=== PATIENT | male | born 1965 | race Caucasian/White ===

== ENCOUNTER 2024-10-16 20:30 | Inpatient (IN) | payer OTHER, SELFPAY ==
[2024-10-16 14:15] VITALS: BP 151/78
[2024-10-16 14:53] LABS: % Basophils 0.2 % (0-2); % Eosinophils 0.2 % (0-6); % Immature Granulocytes 1.5 % (0-0.5); % Lymphocytes 2.1 % (20.5-51.1); % Monocytes 2.5 % (1.7-9.3); % Neutrophils 93.5 % (42.2-75.2); Absolute Immature Granulocytes 0.2 10^3/uL (0-0.05); Absolute Lymphocytes 0.3 10^3/uL (1.2-3.4); Absolute Monocytes 0.3 10^3/uL (0.1-0.6); Hematocrit 25.4 % (39.0-52.0); Hemoglobin 8.4 g/dL (13.0-18.0); Mean Corp Hgb Conc. 33.1 g/dL (33.0-37.0); Mean Corpuscular Hgb 28.1 pg (27.0-31.0); Mean Corpuscular Volume 84.9 fL (80.0-94.0); Mean Platelet Volume 9.9 fL (7.4-10.4); Nucleated Red Blood Cells % 0 % (-); Platelet Count 416 10^3/uL (130-400); Red Blood Cell Count 2.99 10^6/uL (4.70-6.10); Red Cell Dist. Width 14.5 % (11.5-14.5); White Blood Cell Count 12.8 10^3/uL (4.8-10.8)
[2024-10-16 14:58] LABS: Urine Albumin 1+ (Neg - Trace); Urine Bilirubin Negative (Negative); Urine Character Clear (Clear); Urine Color Yellow; Urine Glucose 3+ (Negative); Urine Ketone Negative (Negative); Urine Leukocyte Trace (Negative); Urine Nitrite Negative (Negative); Urine Occult Blood Negative (Negative); Urine Specific Gravity 1.015 (<1.030); Urine Urobilinogen Negative (Neg - 1+)
[2024-10-16 15:14] LABS: ALT (SGPT) 15 U/L (0-50); AST (SGOT) 21 U/L (17-59); Albumin 3.4 g/dl (3.5-5.0); Alkaline Phosphatase 57 U/L (38-126); Blood Urea Nitrogen 21 mg/dl (9-20); Calcium 8.4 mg/dl (8.4-10.2); Carbon Dioxide 14 mmol/L (22-30); Chloride 108 mmol/L (98-107); Glucose 210 mg/dl (70-99); Potassium 3.9 mmol/L (3.5-5.1); Sodium 132 mmol/L (135-145); Total Bilirubin 0.2 mg/dl (0.2-1.3); Total Protein 6.7 g/dl (6.3-8.2); eGFR 53.96
[2024-10-16 15:21] LABS: Urine Mucus Few
[2024-10-16 15:22] LABS: Urine Amorphous Seen; Urine Squamous Cell 0-2 /LPF (Few)
[2024-10-16 15:24] LABS: Urine Red Blood Cell 0-2 /HPF (0-2); Urine White Cell 0-2 /HPF (0-5)
--- NOTE | 2024-10-16 18:11 | ED.GENMED ---
History of Present Illness
<Silvio Olivo DO, Resident - Last Filed: 10/16/24 20:33>
General
Chief Complaint: Fever
Source: patient and spouse
Time Seen by Provider: 10/16/24 17:45
History of Present Illness
History of Present Illness:
59-year-old male past medical history significant for Crohn's disease on Rinvoq, DVT, hypertension, diabetes with a PICC line for chronic nutrition infusion of electrolytes presents for a fever of 1 day. Patient reports he was having shaking
chills, rigors and fever Tmax of 101. Patient denies any urinary symptoms, no cough or congestion, no shortness of breath or difficulty breathing. Patient does report chronic diarrhea and rectal pain, secondary to Crohn's disease. Patient also
reports that his PICC line was recently changed to this morning. He gets it changed every week and noticed no signs of infection of the PICC line. Patient reports having a cold approximate 1 week ago but since has resolved.
Review of Systems
<Silvio Olivo DO, Resident - Last Filed: 10/16/24 20:33>
Review of Systems
Constitutional: Reports fever and chills
Respiratory: Reports no symptoms
Cardiac: Reports no symptoms
ABD/GI: Reports abdominal pain and diarrhea; Denies nausea or vomiting
: Reports no symptoms
Phy Exam
<Silvio Olivo DO, Resident - Last Filed: 10/16/24 20:33>
General Physical Exam
General Presentation: well appearing and no apparent distress
General Skin: warm and dry
Cardiovascular Exam
Cardiovascular Exam: regular rate/rhythm, no edema and no murmur
Pulmonary Exam
Pulmonary Exam: lungs clear, no respiratory distress and no crackles
Gastrointestinal Exam
Gastrointestinal Exam: soft, surgical scar and other (Abdomen has multiple surgical scars and hernias present. Patient reports abdominal tenderness diffusely, worse in the left and right lower quadrants.)
Course
<Silvio Olivo DO, Resident - Last Filed: 10/16/24 20:33>
Orders/Labs/Results
Orders:
Orders
10/16/24 14:24
Electrocardiogram (*1) Urgent
Reason for Study: Other
Other Reason for Exam: fever
EKG- Treatment ONCE
CXR2 [CR Chest - 2 Views ] Urgent
Comment:
Reason For Exam: fever
10/16/24 14:42
Complete Blood Count/With Diff Urgent
Comprehensive Metabolic Panel Urgent
Urinalysis Reflex To Culture Urgent
Date Specimen was Collected: 10/16/24
Time Specimen was Collected: 14:24
Urine Microscopic Reflex Cult Urgent
10/16/24 18:04
CT Abd/pelvis W Iv Cont Urgent
Comment:
Reason For Exam: abdominal pain
10/16/24 18:05
Add On- LAB Urgent
Tests Added?: lactate
10/16/24 18:21
Lactated Ringers [Lr] 1,000 ml IV BOLUS
10/16/24 18:55
COVID-19 Antigen Urgent
Source: Nasal Swab
Lactic Acid Urgent
Blood Culture Q30M
GUANACO Source: Blood/Venous
Specimen Description:
Influenza A+B Rapid Molecular Urgent
GUANACO Source: Nasal Swab
Specimen Description:
10/16/24 19:34
Piperacillin/Tazo 4.5 Gram [Zosyn] 4.5 gram in 100 ml IV NOW
10/16/24 20:09
Blood Culture Q30M
GUANACO Source: Blood/Venous
Specimen Description:
Blood Culture Urgent
GUANACO Source: Blood/Venous
Specimen Description:
Comment: PICC LINE
10/16/24 20:14
Admit/Transfer Patient As Directed
Co-Sign Provider:
Level of Care: Inpatient admission
Assign to:: Medical/Surgical
Physician / Group: mellisa
Diagnosis: proctitis
Reason for Hospitalization: proctitis
Expected length of stay greater than two midnights?: Yes
ELOS- Estimated Length of Stay in days: 3
I certify the patient meets the requirements for IP care: Yes
PRN Pain Medication Management As Directed
May give lesser potent ordered pain med per pt: Yes
preference::
Protocol:: Medication orders for pain may be administered in a
manner that supports deferring to patient preference
when the pt is:
- Requesting an ordered lesser potent pain medication.
Least to most potent pain medications are defined
as: acetaminophen < NSAID < tramadol < opioids
(morphine, oxycodone, hydromorphone).
- Requesting a lesser dose of the same medication IF
ORDERED.
- Requesting a less intrusive route of administration
if both routes are prescribed by the provider (PO <
IV).
10/16/24 20:15
Code Status As Directed
Resuscitation Status: Full Code
10/16/24 20:25
Norovirus by PCR Stat
GUANACO Source: Feces/Stool
Specimen Description:
Stool For WBC Stat
GUANACO Source: Feces/Stool
Specimen Description:
Yersinia Culture-Stool Stat
GUANACO Source: Feces/Stool
Specimen Description:
Abnormal Lab Results
10/16/24
14:42
WBC 12.8 H 10^3/uL
(4.8-10.8)
RBC 2.99 L 10^6/uL
(4.70-6.10)
Hgb 8.4 L g/dL
(13.0-18.0)
Hct 25.4 L %
(39.0-52.0)
Plt Count 416 H 10^3/uL
(130-400)
Abs Immat Gran (auto) 0.2 H 10^3/uL
(0-0.05)
Absolute Neuts (auto) 12.0 H 10^3/uL
(1.4-6.5)
Absolute Lymphs (auto) 0.3 L 10^3/uL
(1.2-3.4)
Immature Gran % 1.5 H %
(0-0.5)
Neutrophils % 93.5 H %
(42.2-75.2)
Lymphocytes % 2.1 L %
(20.5-51.1)
Sodium 132 L mmol/L
(135-145)
Chloride 108 H mmol/L
(98-107)
Carbon Dioxide 14 L* mmol/L
(22-30)
BUN 21 H mg/dl
(9-20)
Creatinine 1.5 H mg/dL
(0.7-1.3)
Glucose 210 H mg/dl
(70-99)
Albumin 3.4 L g/dl
(3.5-5.0)
Leukocyte Esterase Rfl Trace A
(Negative)
Urine Glucose 3+ A
(Negative)
Urine Albumin (Reflex) 1+ A
(Neg - Trace)
10/16/24 14:42
10/16/24 14:42
Vital Signs
Initial and Last Documented VS:
Initial Vital Signs
Temp Pulse Resp BP Pulse Ox
98.9 F 130 18 151/78 98
10/16/24 14:15 10/16/24 14:15 10/16/24 14:15 10/16/24 14:15 10/16/24 14:15
Last Documented Vital Signs
Temp Pulse Resp BP Pulse Ox
99.6 F 102 20 115/82 100
10/16/24 18:23 10/16/24 20:15 10/16/24 20:15 10/16/24 20:00 10/16/24 19:30
<Juan Brown MD - Last Filed: 10/16/24 19:36>
Orders/Labs/Results
Orders:
Orders
10/16/24 14:24
Electrocardiogram (*1) Urgent
Reason for Study: Other
Other Reason for Exam: fever
EKG- Treatment ONCE
CXR2 [CR Chest - 2 Views ] Urgent
Comment:
Reason For Exam: fever
10/16/24 14:42
Complete Blood Count/With Diff Urgent
Comprehensive Metabolic Panel Urgent
Urinalysis Reflex To Culture Urgent
Date Specimen was Collected: 10/16/24
Time Specimen was Collected: 14:24
Urine Microscopic Reflex Cult Urgent
10/16/24 18:04
CT Abd/pelvis W Iv Cont Urgent
Comment:
Reason For Exam: abdominal pain
10/16/24 18:05
Add On- LAB Urgent
Tests Added?: lactate
10/16/24 18:21
Lactated Ringers [Lr] 1,000 ml IV BOLUS
10/16/24 18:55
COVID-19 Antigen Urgent
Source: Nasal Swab
Lactic Acid Urgent
Blood Culture Q30M
GUANACO Source: Blood/Venous
Specimen Description:
Influenza A+B Rapid Molecular Urgent
GUANACO Source: Nasal Swab
Specimen Description:
10/16/24 19:34
Piperacillin/Tazo 4.5 Gram [Zosyn] 4.5 gram in 100 ml IV NOW
10/16/24 20:09
Blood Culture Q30M
GUANACO Source: Blood/Venous
Specimen Description:
Blood Culture Urgent
GUANACO Source: Blood/Venous
Specimen Description:
Comment: PICC LINE
10/16/24 20:14
Admit/Transfer Patient As Directed
Co-Sign Provider:
Level of Care: Inpatient admission
Assign to:: Medical/Surgical
Physician / Group: mellisa
Diagnosis: proctitis
Reason for Hospitalization: proctitis
Expected length of stay greater than two midnights?: Yes
ELOS- Estimated Length of Stay in days: 3
I certify the patient meets the requirements for IP care: Yes
PRN Pain Medication Management As Directed
May give lesser potent ordered pain med per pt: Yes
preference::
Protocol:: Medication orders for pain may be administered in a
manner that supports deferring to patient preference
when the pt is:
- Requesting an ordered lesser potent pain medication.
Least to most potent pain medications are defined
as: acetaminophen < NSAID < tramadol < opioids
(morphine, oxycodone, hydromorphone).
- Requesting a lesser dose of the same medication IF
ORDERED.
- Requesting a less intrusive route of administration
if both routes are prescribed by the provider (PO <
IV).
10/16/24 20:15
Code Status As Directed
Resuscitation Status: Full Code
10/16/24 20:25
Norovirus by PCR Stat
GUANACO Source: Feces/Stool
Specimen Description:
Stool For WBC Stat
GUANACO Source: Feces/Stool
Specimen Description:
Yersinia Culture-Stool Stat
GUANACO Source: Feces/Stool
Specimen Description:
Abnormal Lab Results
10/16/24
14:42
WBC 12.8 H 10^3/uL
(4.8-10.8)
RBC 2.99 L 10^6/uL
(4.70-6.10)
Hgb 8.4 L g/dL
(13.0-18.0)
Hct 25.4 L %
(39.0-52.0)
Plt Count 416 H 10^3/uL
(130-400)
Abs Immat Gran (auto) 0.2 H 10^3/uL
(0-0.05)
Absolute Neuts (auto) 12.0 H 10^3/uL
(1.4-6.5)
Absolute Lymphs (auto) 0.3 L 10^3/uL
(1.2-3.4)
Immature Gran % 1.5 H %
(0-0.5)
Neutrophils % 93.5 H %
(42.2-75.2)
Lymphocytes % 2.1 L %
(20.5-51.1)
Sodium 132 L mmol/L
(135-145)
Chloride 108 H mmol/L
(98-107)
Carbon Dioxide 14 L* mmol/L
(22-30)
BUN 21 H mg/dl
(9-20)
Creatinine 1.5 H mg/dL
(0.7-1.3)
Glucose 210 H mg/dl
(70-99)
Albumin 3.4 L g/dl
(3.5-5.0)
Leukocyte Esterase Rfl Trace A
(Negative)
Urine Glucose 3+ A
(Negative)
Urine Albumin (Reflex) 1+ A
(Neg - Trace)
10/16/24 14:42
10/16/24 14:42
Vital Signs
Initial and Last Documented VS:
Initial Vital Signs
Temp Pulse Resp BP Pulse Ox
98.9 F 130 18 151/78 98
10/16/24 14:15 10/16/24 14:15 10/16/24 14:15 10/16/24 14:15 10/16/24 14:15
Last Documented Vital Signs
Temp Pulse Resp BP Pulse Ox
99.6 F 102 20 115/82 100
10/16/24 18:23 10/16/24 20:15 10/16/24 20:15 10/16/24 20:00 10/16/24 19:30
<Silvio Olivo DO, Resident - Last Filed: 10/16/24 20:33>
MDM/Problems Addressed
Differential Diagnosis Includes:
Sepsis, bacteremia, fever of unknown origin, non-anion gap metabolic acidosis
MDM/Problems Addressed:
59-year-old male past history of Crohn's disease on Renvoke, chronically immunosuppressed, presents for a fever Tmax 101 and shaking chills, rigors of approximately 1 day in duration
Patient has a PICC line which he reports was changed this morning. They report it is changed every week. He gets nutritional infusions through this PICC line for his chronic Crohn's
EKG demonstrates sinus tachycardia
Labs demonstrate leukocytosis 12.8, hemoglobin approximately at baseline, creatinine elevated 1.5
CO2 14, patient reports chronic diarrhea. Anion gap calculated at 10.0, 11.5 when corrected for albumin indicating likely hyperchloremic normal anion gap acidosis. Very likely secondary to chronic diarrhea, differential includes RTA
In the ED patient is afebrile. Will look for a source of infection, patient meets SIRS criteria with tachycardia and leukocytosis. Patient is not reporting any urinary or pulmonary symptoms
Chest x-ray demonstrated no acute cardiopulmonary abnormality, will check urinalysis
Check CT abdomen pelvis with IV contrast
Blood cultures ordered x 2, lactic acid add on, COVID and flu PCR ordered
Will initiate IV fluid with lactated Ringer's
<Silvio Olivo DO, Resident - Last Filed: 10/16/24 20:33>
*Critical Care Note
Total Time (30-74mins, 75-104mins- exclusive of procedures): Not Applicable
ED Attending Note
<Silvio Olivo DO, Resident - Last Filed: 10/16/24 20:33>
-
Portions of this chart may have been created with voice recognition software.� Occasional wrong word or��sound alike� substitutions may have occurred due to the inherent limitations of voice recognition software.
<Juan Brown MD - Last Filed: 10/16/24 19:36>
ED Attending Note
Patient seen and examined by attending physician: Yes
I performed a history and physical exam of patient and discussed management with resident, I reviewed resident's note and agree with documented findings and plan of care.: Yes
ED Attending Note:
I have seen and evaluated the patient with a [id number] encounter. I have spoken to the [resident] and involved in the medical history, the physical exam, medical decision making.
Evaluation and management service: agree unless noted differently below.
Results interpretation: agree unless noted differently below.
Patient is a 59-year-old male with history of Crohn's, Picc line, hypertension and multiple admissions for sepsis presenting to the emergency department with a fever. Patient states that he was in his usual state of health until 11 AM when he
started to develop rigors. He then had a temperature of 101. He is currently on Flagyl for his short gut syndrome. He does state that he had URI symptoms last week but they have resolved. Patient is is at bedside who states that he does
have history of multiple hospitalizations for sepsis. The usual source is his PICC line but sometimes it is from his bowel as he does have some weeks given the amount of surgeries he has had. No nausea or vomiting. He is been having baseline
diarrhea and abdominal pain. He has been having some rectal pain as well. No urinary symptoms.
GENERAL: appears chronically unwell
HEENT: normocephalic, extraocular movements intact, dry oral mucosa
NECK: normal inspection
RESPIRATORY: no respiratory distress, clear to auscultation bilaterally
CARDIOVASCULAR: regular rate and rhythm
ABDOMEN/: soft, non-distended, non-tender to palpation, no rebound or guarding
EXTREMITIES: non-tender, no edema/swelling, PICC line in place with no associated redness or tenderness
NEUROLOGIC: awake and alert, moves all extremities
SKIN: warm
Patient is a 59-year-old male with history of Crohn's presenting to the emergency department with fevers and rigor. Vitals here are initially notable for temperature of 98.9. On exam patient does have very minimal tenderness palpation diffusely.
Differential consists of Crohn's flare versus diverticulitis versus urine infection versus bacteremia. Blood work obtained prior to my evaluation shows no cytosis. He also has a nonanion gap acidosis. Urine is negative. Will add on lactate and
obtain both peripheral and PICC line culture. Will add on CT scan. Will give IV fluids. Patient will need admission for monitoring and observation given his multiple admissions for sepsis.
CT scan with mild wall thickening of the rectum. Will initiate Zosyn. Discussed with hospitalist who accepted patient to their service
Discharge Plan
Departure
Patient Disposition: Admit
Date of Disposition: 10/16/24
Time of Disposition: 19:35
Presentation/result/management discussed w/ accepting MD/DO: Hospitalist
Discharge Problem:
Acute proctitis
Interventions
Interventions:
*Risk Screen - Suicide Last Done: 10/16/24 18:25
*General Assessment Last Done: 10/16/24 18:25
*Neglect/Abuse Screening Last Done: 10/16/24 18:25
ED- Fall Risk Assessment Last Done: 10/16/24 18:25
*ED COVID-19 Vaccine History Last Done: 10/16/24 18:25
ED- Neurological Assessment Last Done: 10/16/24 18:30
ED-Skin Assessment Last Done: 10/16/24 18:30
[2024-10-16 18:23] VITALS: BP 100/69
[2024-10-16 19:14] LABS: Lactic Acid 0.9 mmol/L (0.7-2.0)
[2024-10-16 19:23] LABS: COVID-19 Antigen Negative (Negative)
[2024-10-16 19:28] VITALS: BP 106/68
--- NOTE | 2024-10-16 19:41 | HPS.HSE ---
Family Physician
-
Family Physician:
Chief Complaint
-
fever chills rigors
History of Present Illness
59-year-old male past medical history significant for Crohn's disease on Rinvoq, DVT, hypertension, diabetes with a PICC line for chronic nutrition infusion of electrolytes presents for a fever since this morning. patient had a temp of 101. stated
chills and rigors. denied runny nose, congestion,cough. denied WOLFE,dizzy or syncope.he has chronic abdominal pain as well chronic diarrhea. denied dysuria or hematuria. patient taking Flagyl prophagically.
Ct with proctitis. received iv Zosyn in ER. admitting for further management.
Medical History
Past Medical History
Past Medical History: Reports Other
Additional Past Medical History:
Type 2 diabetes
Hypertension
DVT
Crohn's disease
Iron deficiency anemia
B12 deficiency
Past Surgical History: Reports Other
Additional Past Surgical History:
History of multiple abdominal resection
Social History
Tobacco: Former Smoker
Alcohol: None
Personal:
Living: With Family
Family History
Family History: Not pertinent
Allergies / Home Medications
Allergies reflects when Allergies were last updated in [employer].
Home Medications with original date entered in [employer]
Allergy/Medication List:
Allergies
Allergy/AdvReac Type Severity Reaction Status Date / Time
No Known Allergies Allergy Unverified 10/16/24 14:22
Review of Systems
-
Constitutional: Reports Fever and Chills
EENT: Reports No Symptoms
Respiratory: Reports No Symptoms
Cardiac: Reports No Symptoms
Abdomen/GI: Reports No Symptoms
: Reports No Symptoms
Musculoskeletal: Reports No Symptoms
Skin: Reports No Symptoms
Neurological: Reports No Symptoms
Endocrine: Reports No Symptoms
Hematologic/Lymphatic: Reports No Symptoms
Psych: Reports No Symptoms
Physical Exam
Vital Signs
Vital Signs
Temp Pulse Resp BP Pulse Ox
99.6 F 99 16 100/69 98
10/16/24 18:23 10/16/24 18:45 10/16/24 18:45 10/16/24 18:23 10/16/24 18:45
Physical Exam
General: Well Developed, Well Nourished and No Apparent Distress
HEENT: NormoCephalic, Moist mucous membranes and Atraumatic
Respiratory: Clear
Cardiac: S1/S2 and Regular Rhythm; No Murmur or Rub
GI: Soft, Non Tender, Non Distended and Normal Bowel Sounds; No Organomegaly
Rectal: Deferred by Provider
Musculoskeletal: No Clubbing, No Cyanosis and No Edema
Skin: No Rash
Neuro: AO x 3 and Nonfocal/grossly intact
Psych: Calm
Laboratory Results
-
10/16/24 14:42
10/16/24 14:42
Laboratory Results
Lactic Acid 0.9 mmol/L (0.7-2.0) 10/16/24 18:55
Total Bilirubin 0.2 mg/dl (0.2-1.3) 10/16/24 14:42
AST 21 U/L (17-59) 10/16/24 14:42
ALT 15 U/L (0-50) 10/16/24 14:42
Alkaline Phosphatase 57 U/L (38-126) 10/16/24 14:42
Data Reviewed
-
CT Scan: Report Reviewed by me
Lab Data: Labs Reviewed by me
Impression/Plan
-
# fever likely from Proctitis
-WBCs 2.8
-CT abdomen pelvis with impression of there is apparent mild wall thickening of the rectum which may represent an element of proctitis. There is no evidence of bowel obstruction.
-Blood cultures from peripheral and PICC line sent from ER
-IV Zosyn initiated in ER
-hold abx until cultures resulted
-will obtain stool for cultures, norovirus and C diff
-blood culture from picc line and peripheral sent from ER.
-flagyl from home continued
-Tylenol as needed for fever or pain
# Hyponatremia/RODERICK/non gap metabolic acidosis likely dehydration
-Continue fluids
-BMP in a.m.
# Normocytic anemia
Hemoglobin 8.4
-No active bleeding
-Continue to monitor
-Gets iron infusion and B12 infusion as outpatient
# History of chron's disease
-Will continue home medications
-On Dilaudid and fentanyl patch for pain
-Patient gets electrolytes infusions 4 times a week
# Type 2 diabetes
- sliding scale
-CHO diet
# History of DVT
-On Eliquis
# History of hypertension
-metoprolol continued with hold parameters
# Hyperlipidemia
-Tricor continued
#CODE STATUS
-Full code
[2024-10-16 20:00] VITALS: BP 115/82
[2024-10-16] MEDS: LR 1000 IV (20:10)
[2024-10-16] MEDS: ZOSYN 100 IV (20:13)
--- NOTE | 2024-10-16 20:36 | W.PN.UPDATE ---
Update Note
Progress Note Update
Patient seen in conjunction with CIARA. I agree with the findings on history and physical exam as well as the assessment and plan.
Briefly this is a 59-year-old with history of extensive Crohn's colitis status post bowel resection ileostomy and reversal who is left with short bowel syndrome and history of bacterial overgrowth who presents to the emergency department today with
shaking chills and fever at home.
Patient reports that he has a chronic PICC line that has been there for 1 year. He gets dressing changes and blood draws as well as electrolyte infusions via the PICC line. He had blood drawn today as well as dressing change. Thereafter he
developed shaking chills. He then had a fever of 101 at home. He said that about a week and a half ago he had upper respiratory infection and was given a Z-Anup which he completed the course and had resolution of symptoms. Otherwise today he
denies any runny nose headache sore throat cough shortness of breath or dyspnea on exertion. He reports his chronic abdominal and rectal pain without any new nausea or vomiting. He reports chronic loose bowel movements/diarrhea which is unchanged
from prior. He denies any rash. He denies any known sick contacts. Denies any urinary symptoms.
He came to the emergency department for evaluation for the fever. Temperature in the ED was 99.6. Blood pressure was 100/69 with a pulse of 99 and was at 98% on room air. White count was 12.8 but otherwise hemoglobin was 8.4 (chronic anemia
patient gets iron infusion) and a normal platelet count of 416. Electrolytes notable for sodium of 132, potassium 3.9 bicarb of 14 BUN and creatinine of 21 and 1.5 respectively with a glucose of 210. Chest x-ray was clear. COVID test was
negative. Influenza negative. CT of the abdomen pelvis shows status post partial colectomy, there is some thickening of the rectum consistent with proctitis. UA is clear
Assessment and plan
59-year-old who has a history of Crohn's on chronic antibiotic Flagyl for bacterial overgrowth and recent treatment with Zithromycin for upper respiratory infection presents to the emergency department with a 1 day history of transient shaking
chills and a fever to 101 at home. Afebrile here in the emergency department and has no chills. He has no obvious source of infection at this time. Based on patient's history of chronic PICC line there is concern for possible bacteremia. The CT
of the abdomen was unrevealing and other infectious workup was negative.
- admit to med/surg
- blood cultures and urine cultures
- s/p zosyn in ED for colitis, will hold further abx for now
- check procalcitonin
- stool culture and cdiff
Electrolytes - Chronic low bicarb, CKD with chronic hypomagnesemia and hypophosphatemia
- IV 1/2 NS + 75 meq bicarb for now
- give 1 g MgS given low mag on home labs, repeat in am
- check phos in am
Crohns - On Rinvoq, no recent flairs
- continue supportive care and pt rinvoq
- colesavelam bid
- flagyl for bacterial overgrowth
AFIB
- continue apixaban and metoprolol
DVT PPX - on apixaban
Code status - full code
[2024-10-16 21:49] VITALS: BMI 27.0
[2024-10-16] MEDS: MAGNESIUM SULFATE 100 IV (21:50)
[2024-10-16 23:38] VITALS: BP 142/83; BMI 27.0
[2024-10-17] MEDS: IMODIUM 4 MG PO ×4 (00:13→22:38)
[2024-10-17] MEDS: DILAUDID 5 MG PO ×2 (00:13→19:38)
[2024-10-17] MEDS: FLOMAX 0.4 MG PO ×2 (00:13→22:38)
[2024-10-17] MEDS: SODIUM BICARBONATE 1075 MEQ IV (00:14)
[2024-10-17] MEDS: ELAVIL 25 MG PO ×2 (00:41→22:38)
--- NOTE | 2024-10-17 06:02 | PTCARENOTE ---
Stool was collected and sent to lab in the ED; this RN spoke with Loni Morton in the lab and was told that the outstanding C-diff could be added on.
[2024-10-17 06:29] LABS: Blood Urea Nitrogen 15 mg/dl (9-20); Calcium 7.5 mg/dl (8.4-10.2); Carbon Dioxide 20 mmol/L (22-30); Chloride 107 mmol/L (98-107); Estimated Creatinine Clearance 58 ml/min; Glucose 128 mg/dl (70-99); Magnesium 1.8 mg/dl (1.6-2.3); Phosphorus 2.6 mg/dl (2.5-4.5); Potassium 3.3 mmol/L (3.5-5.1); Sodium 135 mmol/L (135-145); eGFR 53.96
[2024-10-17 06:30] LABS: Hematocrit 21.2 % (39.0-52.0); Hemoglobin 6.8 g/dL (13.0-18.0); Mean Corp Hgb Conc. 32.1 g/dL (33.0-37.0); Mean Corpuscular Hgb 27.5 pg (27.0-31.0); Mean Corpuscular Volume 85.8 fL (80.0-94.0); Mean Platelet Volume 9.6 fL (7.4-10.4); Platelet Count 286 10^3/uL (130-400); Red Blood Cell Count 2.47 10^6/uL (4.70-6.10); Red Cell Dist. Width 14.6 % (11.5-14.5); White Blood Cell Count 7.6 10^3/uL (4.8-10.8)
[2024-10-17 07:05] VITALS: BP 114/70
--- NOTE | 2024-10-17 08:07 | W.PN.HOSP.TC ---
Today's Communication/Plan
-
See PN
Assessment / Plan
Assessment / Plan
59yo M with PMHx of cholecystectomy, Crohns colitis s/p colectomy, DM, BPH, LE DVT on ELiquis and IVC filter, RUE PICC line with 4xweek IVF came after he developed 1 hour of chills at home with reported fever of 101. XR negative for pneumonia, no
dysuria reported, influenza and COVID-[address] abd showed colitis. Patient also developed dark-black stool on the day of admission, found anemia
A/P:
#Fever at home, concern for colitis vs Crohns flare
#PICC line
#Immunosupressed patient
#chonic diarrhea
Zosyn/Vanco
Bcx pending
Hold Rinvoq
GI consult
Check C.diff stool
#New back pain
with fevers - MRI would be appropriate, however patient thinks that its just due to poor sleep and declined offered study
#Anemia, acute on chronic blood loss
Most likely 2/2 colitis
Serial H&H, transfuse to keep Hgb >7
PPI
Hold Antiplatelets, anticoagulation, avoid NSAIDs
#Hx of DVT LE on ELiquis and IVCf
Hold Eliquis - IVC filter present, so decreasing chance for pulmonary embolism.
US LE to eval if persistent DVT
#BPH
#Mild urinary bladder wall thickening
watch for retention
#Hypokalemia
#CKD stage 3a
#HAGMA on admission
Improving on Bicarb drip
follow and replete electrolytes
Urine studies
#Liver cyst/hemangioma
5mm - no follow up advised
#6 mm nodular focus within the inferior right lower lobe
outpatient CT chest in 3-6 months
DVT ppx SCDs
Full code
I have spent at least 58min reviewing chart, test results, communication with consukltants and direct patient care
Anticipated Discharge: > 48 hours
Subjective/Interval History
-
Date of Service: October 17, 2024
Objective Data
-
Labs:
Laboratory Results
10/17/24 10/17/24 10/17/24
05:38 09:30 17:00
WBC 7.6
Hgb 6.8 L* Pending Pending
Hct 21.2 L Pending Pending
Plt Count 286 D
Sodium 135
Potassium 3.3 L
Chloride 107
Carbon Dioxide 20 L
BUN 15
Creatinine 1.5 H
Glucose 128 H
Calcium 7.5 L
Vital Signs:
Vital Signs
Temp Pulse Resp BP Pulse Ox
99.2 F 104 14 142/83 100
10/16/24 23:38 10/16/24 23:38 10/16/24 23:38 10/16/24 23:38 10/16/24 23:38
I&O
10/16/24 10/17/24 10/18/24
06:59 06:59 06:59
Intake Total 800 / 800
Balance 800 / 800
Review of Systems
-
History Source: Patient
All other systems: Reviewed and negative
Abdomen/GI: Reports Abdominal Pain (chronic)
Genitourinary: Denies Dysuria
Musculoskeletal: Reports Other (upper back pain)
Hematologic / Lymphatic: Reports No Symptoms
[2024-10-17 08:18] LABS: Glucose - Point of Care 121 mg/dl (70-99)
[2024-10-17 08:35] LABS: Hematocrit 24.5 % (39.0-52.0); Hemoglobin 7.9 g/dL (13.0-18.0)
[2024-10-17] MEDS: NOVOLOG FLEXPEN-LOW RESISTANCE SC ×2 (08:46→17:18)
[2024-10-17] MEDS: TRICOR 145 MG PO (08:52)
[2024-10-17] MEDS: BENTYL 10 MG PO (08:52)
[2024-10-17] MEDS: TOPROL XL 50 MG PO (08:54)
[2024-10-17] MEDS: VANCOCIN 540 MG IV (08:56)
[2024-10-17] MEDS: LOMOTIL 1 TABLET PO (08:56)
[2024-10-17] MEDS: NSS (PRESERVATIVE FREE) 10 ML IV ×2 (08:57→19:39)
[2024-10-17] MEDS: PROTONIX IV 40 MG IV ×2 (08:58→19:39)
[2024-10-17] MEDS: ZOSYN 50 IV ×3 (09:38→19:39)
[2024-10-17] MEDS: KCL 270 MEQ IV (09:39)
[2024-10-17 10:23] LABS: Glycohemoglobin (HgbA1c) 5.4 % (4.0-5.6)
--- NOTE | 2024-10-17 10:35 | PHA.VAN.IN ---
Assessment
- Assessment
Renal Function: Unknown baseline
Renal Function may be Overestimated due to: Obesity. BMI = 27
Maximum Temperature: 99.2
Minimum Temperature: 98
Concomitant Antimicrobials: Piperacillin-tazobactam
AUC Dosing Plan
- Dosing Variables
Dosing Weight (kg): 87.7
Dosing CrCl (ml/min): 58
Vd coefficient (L/kg): 0.7
- Empiric Dosing
Initial / Loading Dose: Vanc 2000mg given 10/17 at 0856
Maintenance Regimen: Vanc 1500mg q24 starting 10/18 0600
Estimated AUC (mcg*h/mL): 483.39
Estimated Peak (mcg*h/mL): 34.1
Estimated Trough (mcg/ml): 10.45
Estimated Half Life (H): 13.2
- Monitoring
No levels ordered at this time: Consider levels after 10/20 dose
Pharmacokinetics Vancomycin I
- -
Patient Age: 59
Patient Sex: Male
Vancomycin Day #: 1
Indication: Gi / Intra-Abdominal
Requesting Provider: Daniele
Height / Weight:
Height 5 ft 11 in
Actual Weight 87.657 kg
IBW in k.3
Adjusted BW in k.2
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
- Vital Signs / Lab Results
Temp Pulse Resp BP Pulse Ox
98.0 F 83 16 114/70 97
10/17/24 07:05 10/17/24 07:05 10/17/24 07:05 10/17/24 07:05 10/17/24 07:05
Lab Results - Hematology
10/16/24 10/17/24
14:42 05:38
WBC 12.8 H 7.6
Lab Results - Chemistry
10/16/24 10/17/24
14:42 05:38
BUN 21 H 15
Creatinine 1.5 H 1.5 H
Estimated Creat Clear 58
Albumin 3.4 L
10/16/24
18:55
Lactic Acid 0.9
Lab Results - Urine
10/16/24
14:42
Urine Nitrite (Reflex) Negative
Leukocyte Esterase Rfl Trace A
Urine WBC (Reflex) 0-2
Ur Squamous Epith Cells 0-2
Microbiology Results
10/16/24 21:23 - Final
Feces/Stool Negative for Norovirus GI and GII.
10/16/24 21:23 C. difficile GDH Antigen & Toxins - Final
Feces/Stool Negative for toxigenic C.difficile
10/16/24 18:55 Influenza Types A & B (HARSHAD) - Final
Nasal Swab Negative for Influenza A & B, NAAT
Negative results must be combined with clinical observations
and patient history.
Nucleic Acid Amplification test (NAAT)performed on the
[employer] platform.
[2024-10-17 11:56] LABS: Glucose - Point of Care 172 mg/dl (70-99)
[2024-10-17] MEDS: NOVOLOG FLEXPEN-LOW RESISTANCE 1 UNITS SC (13:35)
--- NOTE | 2024-10-17 14:09 | CON.GI ---
Consultation
-
Date/Time Consultation Requested: 10/16/24
Date/Time Consultation Performed: 10/16/24
Requesting Provider: Dr. Sanabria
Performing Provider: Dr. Bonner
Reason for Consultation: Fever, hx of crohns colitis
Medical History
Chief Complaint / HPI
Chief Complaint: Fever
History of Present Illness:
William Leavitt is a 59-year-old male with past medical history of Crohn's colitis status post multiple fistulas, large and small bowel resections currently on Rinvoq and managed at [facility], history of DVT s/p IVC filter, hypertension, diabetes, PICC
line for chronic nutrition infusion of electrolytes and chronic narcotics who presents with 1 day of fevers. He reports yesterday having a fever of 101 with associated chills and rigors, denies any nausea, vomiting, worsening abdominal pain as he
has chronic abdominal pain at baseline, or change in bowels. At baseline he has chronic diarrhea, has about 4 episodes of diarrhea per day. He does state he believes he was given a diagnosis of short gut syndrome in the past as well as treated for
SIBO. He empirically started Flagyl at home. On arrival he had a CT scan which showed postoperative changes of partial colectomy and prior small bowel resections as well as apparent mild wall thickening of the rectum which could represent an
element of proctitis. No evidence of bowel obstruction. He follows very closely with his veterans services specialist. Last colonoscopy about a year ago. He is scheduled to have another 1 in November. Last Crohn's flare was about 5 years ago. He was
initially diagnosed about 20 years ago, states he has both large and small bowel involvement as well as rectum involvement. In addition to chronic abdominal pain, admits to chronic rectal pain as well. He believes prior imaging has shown proctitis
so thinks that this could be a chronic finding for him. He has previously been on Remicade, Humira and Stelara, started on Rinvoq in February. His last dose of Rinvoq was on Tuesday. He denies any rectal bleeding or melena. He was noted not be anemic
on arrival, Hgb 8.4 --> 6.8 --> 7.9, MCV 85.8, Plt 286. BUN 21 --> 15. Lactate 0.9, Cr. 1.5. Unknown baseline hemoglobin or Cr.
No prior records available for review.
CT A/P w/ IV Contrast 10/16/24: There is a 6 mm nodular focus within the inferior right lower lobe. 5 mm hypodensity within the inferior right hepatic lobe, likely a benign cyst or hemangioma. GB surgically absent. There is mild prominence of the
intrahepatic and extra hepatic biliary system, likely reservoir effect in the setting of prior cholecystectomy. No evidence of bowel obstruction or wall thickening. Postoperative changes of prior partial colectomy and partial small bowel resection.
There is mild rectal wall thickening.
Past Medical History
Past Medical History: Other (DVT s/p IVC filter, hypertension, diabetes, Crohns colitis)
Past Surgical History: Bowel Resection and Cholecystectomy
Social History
Tobacco: Former Smoker
Alcohol: None
Drug: None
Living: With Family
Family History
Family History: Reviewed & Not Pertinent
Allergies / Home Medications
Allergy/AdvReac Type Severity Reaction Status Date / Time
No Known Allergies Allergy Unverified 10/16/24 14:22
�Medication �Instructions �Recorded
amitriptyline 25 mg tablet 25 mg PO HS 10/16/24
apixaban 5 mg tablet (Eliquis) 5 mg PO BID 10/16/24
colesevelam 625 mg tablet (WelChol) 625 mg PO BID 10/16/24
dicyclomine 10 mg capsule 10 mg PO DAILY 10/16/24
diphenoxylate-atropine 2.5 1 tab PO DAILY 10/16/24
mg-0.025 mg tablet
fenofibrate micronized 160 mg 160 mg PO DAILY 10/16/24
tablet
fentanyl 12 mcg/hr transdermal 1 patch transdermal Q72H 10/16/24
patch
hydromorphone 1 mg/mL oral liquid 5 mg PO Q4H PRN moderate pain 10/16/24
insulin aspart U-100 10/16/24
loperamide 2 mg tablet 4 mg PO TID 10/16/24
metoprolol succinate 50 mg 50 mg PO DAILY 10/16/24
tablet,extended release 24 hr
metronidazole 500 mg tablet 500 mg PO DAILY 10/16/24
tamsulosin 0.4 mg capsule 0.4 mg PO HS 10/16/24
upadacitinib 30 mg tablet,extended 30 mg PO DAILY 10/16/24
release 24 hr (Rinvoq)
Review of Systems
-
History Source: Patient
All other systems: A 12 pt ROS was Negative except as stated above in HPI
Vital Signs
Temp Pulse Resp BP Pulse Ox
98.0 F 83 16 114/70 97
10/17/24 07:05 10/17/24 07:05 10/17/24 07:05 10/17/24 07:05 10/17/24 07:05
Physical Exam
Exam
GI: Soft, Non Tender, Non Distended and Other (Multiple well-healed surgical scars in the abdomen with 2 small hernias at surgical sites, which are reducible)
Results
WBC 7.6 10^3/uL (4.8-10.8) 10/17/24 05:38
Hgb 7.9 g/dL (13.0-18.0) L 10/17/24 08:23
Hct 24.5 % (39.0-52.0) L 10/17/24 08:23
MCV 85.8 fL (80.0-94.0) 10/17/24 05:38
Plt Count 286 10^3/uL (130-400) D 10/17/24 05:38
Absolute Neuts (auto) 12.0 10^3/uL (1.4-6.5) H 10/16/24 14:42
Sodium 135 mmol/L (135-145) 10/17/24 05:38
Potassium 3.3 mmol/L (3.5-5.1) L 10/17/24 05:38
Chloride 107 mmol/L (98-107) 10/17/24 05:38
Carbon Dioxide 20 mmol/L (22-30) L 10/17/24 05:38
BUN 15 mg/dl (9-20) 10/17/24 05:38
Creatinine 1.5 mg/dL (0.7-1.3) H 10/17/24 05:38
Calcium 7.5 mg/dl (8.4-10.2) L 10/17/24 05:38
Total Bilirubin 0.2 mg/dl (0.2-1.3) 10/16/24 14:42
AST 21 U/L (17-59) 10/16/24 14:42
ALT 15 U/L (0-50) 10/16/24 14:42
Alkaline Phosphatase 57 U/L (38-126) 10/16/24 14:42
Diagnostic Image Results:
Prior GI Procedures:
EGD:
Colonoscopy:
Assessment / Plan
-
59 y.o. male with history of Crohns colitis c/b enterocutaneous fistulas s/p SBR as well as partial colectomy currently on Rinvoq, DVT w/ IVC filter on eliquis, PICC line for electrolytes and nutrition, HTN, DM2 admitted with 1 day of fever noted to
have mild proctitis CT scan, also with evidence of anemia on labs, unknown baseline.
#Crohns Colitis s/p partial colectomy and multiple SBRs w/ resultant short-gut?-- follows closely at [facility], on Rinvoq. Reports last flare 5 years ago. Colonoscopy within the last year. Plans for repeat colonoscopy in Nov.
-Tmax since arrival 99.6--BCx pending, if negative, okay to resume Rinvoq
-possible bacteremia from PICC line?--> blood cultures taken from PICC line as well as peripherally, pending
-Started on Zosyn
-not consistent with crohns flare, per patient, believes his prior CT scans have demonstrated this inflammation in the rectum, so this could be a chronic finding for him
-Diarrhea at baseline for patient, check stool studies to rule out infectious etiologies, fecal calpro
-check CRP
-denies prior CMV infection--overall clinical picture not very concerning for Crohns flare, monitor over next 24 hours, hold off on endoscopic procedures for now
#Acute on Chronic Anemia
-Hgb 8.4 --> 6.8 --> 7.9, MCV 85.8
-1 unit PRBC ordered, but no transfused; recommend holding on transfusion given improvement without intervention
-[facility] with regards to prior endoscopic findings and baseline Hgb
-No overt signs of GI bleeding
-continue PPI IV BID for now
-gets iron and B12 infusions as outpatient
-
-
-
Thank you for consultation and allowing me to participate in the patient's care. Please call the talent acquisition consultant GI physician during the after hours with any questions or concerns.
[2024-10-17] MEDS: CATHFLO/ACTIVASE 2 MG INTRACATH (14:45)
--- NOTE | 2024-10-17 15:49 | CM ---
Chart reviewed. Patient here for proctitis. Has a history of Crohn's disease. Lives with his , Symone in a home. [address]. He is independent. He owns a walker, but he does not use it. He is on disability. He denies any +SDOHs. He drives. His
will provide transportation once he is discharged.
Home Health Agency: [facility]
PCP: Dr. Nayan Workman in [place]. [place] ([facility])
Pharmacy:[facility]
ANTICIPATED DISCHARGE PLAN: Discharge home with and [facility] services, when medically cleared.
[2024-10-17 16:20] VITALS: BP 119/67
[2024-10-17] MEDS: SODIUM BICARBONATE IV (16:22)
[2024-10-17] MEDS: LR 1000 IV (16:26)
--- NOTE | 2024-10-17 17:14 | VATNOTE ---
CathFlo instilled by previous shift RN. Both lumens flush easily, no blood return from either lumen. Will repeat CathFlo as per protocol.
[2024-10-17 17:16] LABS: Glucose - Point of Care 139 mg/dl (70-99)
--- NOTE | 2024-10-17 18:47 | VATNOTE ---
Repeat CathFlo dose given, both lumens now with brisk blood return.
[2024-10-17 19:03] LABS: Hematocrit 23.3 % (39.0-52.0); Hemoglobin 7.5 g/dL (13.0-18.0)
[2024-10-17 21:37] LABS: Glucose - Point of Care 208 mg/dl (70-99)
[2024-10-17 23:14] VITALS: BP 105/63
[2024-10-18] VITALS (8 sets, daily range): BP systolic 99–128; BP diastolic 58–75
[2024-10-18 00:13] LABS: Urine Sodium 43 mmol/L (30-90)
[2024-10-18 00:15] LABS: Osmolality Urine 359 mOsm/kg (300-900)
[2024-10-18] MEDS: LR 1000 IV ×2 (02:53→16:52)
[2024-10-18] MEDS: ZOSYN 50 IV ×4 (02:53→20:26)
[2024-10-18] MEDS: VANCOCIN 530 MG IV (06:47)
--- NOTE | 2024-10-18 06:53 | PTCARENOTE ---
Meio infusing at a slower rate per patient request; patient states that he gets flushed if infused too quickly.
[2024-10-18 06:58] LABS: % Basophils 0.4 % (0-2); % Eosinophils 3.3 % (0-6); % Lymphocytes 6.6 % (20.5-51.1); % Neutrophils 77.7 % (42.2-75.2); Absolute Eosinophils 0.2 10^3/uL (0-0.7); Absolute Immature Granulocytes 0.1 10^3/uL (0-0.05); Absolute Lymphocytes 0.3 10^3/uL (1.2-3.4); Absolute Monocytes 0.6 10^3/uL (0.1-0.6); Hemoglobin 6.4 g/dL (13.0-18.0); Mean Corpuscular Hgb 27.8 pg (27.0-31.0); Mean Platelet Volume 10.1 fL (7.4-10.4); Nucleated Red Blood Cells % 0 % (-); Platelet Count 233 10^3/uL (130-400); Red Cell Dist. Width 14.9 % (11.5-14.5); White Blood Cell Count 5.2 10^3/uL (4.8-10.8)
[2024-10-18 07:10] LABS: ALT (SGPT) 12 U/L (0-50); AST (SGOT) 17 U/L (17-59); Albumin 2.5 g/dl (3.5-5.0); Alkaline Phosphatase 45 U/L (38-126); Blood Urea Nitrogen 9 mg/dl (9-20); Calcium 7.4 mg/dl (8.4-10.2); Carbon Dioxide 20 mmol/L (22-30); Chloride 108 mmol/L (98-107); Estimated Creatinine Clearance 62 ml/min; Glucose 155 mg/dl (70-99); Magnesium 1.8 mg/dl (1.6-2.3); Phosphorus 2.2 mg/dl (2.5-4.5); Potassium 3.3 mmol/L (3.5-5.1); Sodium 134 mmol/L (135-145); Total Bilirubin 0.1 mg/dl (0.2-1.3); Total Protein 5.4 g/dl (6.3-8.2); eGFR 58.62
[2024-10-18 07:18] LABS: Glucose - Point of Care 137 mg/dl (70-99)
[2024-10-18] MEDS: NOVOLOG FLEXPEN-LOW RESISTANCE SC ×2 (07:56→17:47)
[2024-10-18] MEDS: FLUSH (NSS) 2 FLUSH IV (08:02)
[2024-10-18] MEDS: NSS (PRESERVATIVE FREE) 10 ML IV ×2 (08:02→20:26)
[2024-10-18] MEDS: PROTONIX IV 40 MG IV ×2 (08:02→20:25)
[2024-10-18] MEDS: TOPROL XL 50 MG PO (08:03)
[2024-10-18] MEDS: BENTYL 10 MG PO (08:03)
[2024-10-18] MEDS: TRICOR 145 MG PO (08:03)
[2024-10-18] MEDS: LOMOTIL 1 TABLET PO (08:04)
[2024-10-18] MEDS: IMODIUM 4 MG PO ×2 (08:04→22:29)
--- NOTE | 2024-10-18 08:30 | W.PN.HOSP.TC ---
Today's Communication/Plan
-
remove PICC, send PICC to culture, repeat Bcx in AM
ID consult
Assessment / Plan
Assessment / Plan
59yo M with PMHx of cholecystectomy, Crohns colitis s/p colectomy, DM, BPH, LE DVT on ELiquis and IVC filter, RUE PICC line with 4xweek IVF came after he developed 1 hour of chills at home with reported fever of 101. XR negative for pneumonia, no
dysuria reported, influenza and COVID-[address] abd showed colitis. Patient also developed dark-black stool on the day of admission, found anemia. s/p 1 unit PRBC on 10/18/24. Bcx from PICC grew bacteria
A/P:
#Fever at home
#Infected PICC line
#Immunosuppressed patient
#chronic diarrhea
Zosyn/Vanco
Bcx NTD
PICC line Cx - GNB
ID consult - remove PICC await Bcx results
Hold Rinvoq
GI consult
C.DIff and stool WBC neg
#New back pain
with fevers - MRI would be appropriate, however patient thinks that its just due to poor sleep and declined offered study
#Anemia, acute on chronic blood loss
Most likely 2/2 colitis
Serial H&H, transfuse to keep Hgb >7
PPI
Hold Antiplatelets, anticoagulation, avoid NSAIDs
#Hx of DVT LE on Eliquis and IVCf
Hold Eliquis - IVC filter present, so decreasing chance for pulmonary embolism.
US LE to eval if persistent DVT
#BPH
#Mild urinary bladder wall thickening
watch for retention
#Hypokalemia
#CKD stage 3a
#HAGMA on admission
Improving on Bicarb drip
follow and replete electrolytes
Urine studies
#Liver cyst/hemangioma
5mm - no follow up advised
#6 mm nodular focus within the inferior right lower lobe
outpatient CT chest in 3-6 months
DVT ppx SCDs
Full code
I have spent at least 58min reviewing chart, test results, communication with consukltants and direct patient care
Anticipated Discharge: > 48 hours
Subjective/Interval History
-
Date of Service: October 18, 2024
Objective Data
-
Labs:
Laboratory Results
10/18/24
05:39
WBC 5.2
Hgb 6.4 L*
Hct 20.0 L*
Plt Count 233
Sodium 134 L
Potassium 3.3 L
Chloride 108 H
Carbon Dioxide 20 L
BUN 9
Creatinine 1.4 H
Glucose 155 H
Calcium 7.4 L
Total Bilirubin 0.1 L
AST 17
ALT 12
Alkaline Phosphatase 45
Vital Signs:
Vital Signs
Temp Pulse Resp BP Pulse Ox
98.3 F 80 18 124/72 99
10/18/24 07:19 10/18/24 08:03 10/18/24 07:19 10/18/24 08:03 10/18/24 07:19
I&O
10/17/24 10/18/24 10/19/24
06:59 06:59 06:59
Intake Total 800 / 800 4440 / 4440
Output Total 600 / 600
Balance 800 / 800 3840 / 3840
Review of Systems
-
History Source: Patient
All other systems: Reviewed and negative
Physical Exam
-
General: Well Developed, Well Nourished and No Apparent Distress
HEENT: Normocephalic
Respiratory: Clear to Auscultation
GI: Soft, Nontender and Nondistended
Neuro: Awake, Alert, Oriented and AO x 3
Psych: Calm
--- NOTE | 2024-10-18 09:33 | PHA.VAN.FU ---
Vancomycin Assessment / Plan
- Assessment
Renal Function: SCR Decreasing (1.5->1.4)
WBC's are: Trending Down
In the past 24 hrs, patient has been: Afebrile
Concomitant Antimicrobials: Piperacillin/tazo
- Dosing Plan
Continue: vancomycin 1500 mg q24h - 1st maint dose 10/18 0600 after 2g LD 10/17
- Monitoring Plan
No level(s) ordered at this time: consider levels after 10/20 am dose ( 4th total dose)
- Follow Up
Pharmacy will continue to follow.
Vancomycin Follow UP
- -
Patient Age: 59
Patient Sex: Male
Vancomycin Day #: 2
Indication: Gi / Intra-Abdominal
Requesting Provider: Daniele
Height / Weight:
Height 5 ft 11 in
Actual Weight 87.657 kg
IBW in k.3
Adjusted BW in k.2
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
- Vital Signs / Lab Results
Temp Pulse Resp BP Pulse Ox
98.3 F 80 18 124/72 99
10/18/24 07:19 10/18/24 08:03 10/18/24 07:19 10/18/24 08:03 10/18/24 07:19
Lab Results - Hematology
10/16/24 10/17/24 10/18/24
14:42 05:38 05:39
WBC 12.8 H 7.6 5.2
Lab Results - Chemistry
10/16/24 10/17/24 10/18/24
14:42 05:38 05:39
BUN 21 H 15 9
Creatinine 1.5 H 1.5 H 1.4 H
Estimated Creat Clear 58 62
Albumin 3.4 L 2.5 L
10/16/24
18:55
Lactic Acid 0.9
Microbiology Results
10/16/24 20:09 Blood Culture - Preliminary
Blood/Venous Positive culture in progress
Gram Stain - Preliminary
10/16/24 20:09 Blood Culture - Preliminary
Blood/Venous No Growth in 24 hours- Final report to follow
10/16/24 18:55 Blood Culture - Preliminary
Blood/Venous No Growth in 24 hours- Final report to follow
10/16/24 21:23 Stool Leukocytes - Final
Feces/Stool
10/16/24 21:23 - Final
Feces/Stool Negative for Norovirus GI and GII.
10/16/24 21:23 C. difficile GDH Antigen & Toxins - Final
Feces/Stool Negative for toxigenic C.difficile
10/16/24 18:55 Influenza Types A & B (HARSHAD) - Final
Nasal Swab Negative for Influenza A & B, NAAT
Negative results must be combined with clinical observations
and patient history.
Nucleic Acid Amplification test (NAAT)performed on the
[email or web address] platform.
[2024-10-18 11:39] LABS: Glucose - Point of Care 165 mg/dl (70-99)
--- NOTE | 2024-10-18 12:26 | VATNOTE ---
PICC line removed per MD order, tip sent for culture.
[2024-10-18] MEDS: NOVOLOG FLEXPEN-LOW RESISTANCE 1 UNITS SC (13:13)
--- NOTE | 2024-10-18 13:16 | PTCARENOTE ---
Pt ordered 1 unit of PRBC. Previous PICC line removed, tip sent for cx, VSS, two peripheral sites placed by IV team into left FA. Blood confirmed by two RN's, Blood infusing into left FA 20g. Pt and vitals assessed at 15 minute jose a, VSS, pt resting
comfortably in bed at this time. See TAR for documentation.
--- NOTE | 2024-10-18 13:42 | CM ---
Patient seen at bedside.
hx: Chron's disease
current with [facility] - referral [facility] in [facility]
per nsg patient to receive transfusion, PICC to be removed.
PLAN: home, [facility]
--- NOTE | 2024-10-18 14:19 | CON.ID ---
Addendum entered and electronically signed by Paty Zuñiga MD 10/18/24 15:47:
metronidazole is for SIBO
Addendum entered and electronically signed by Paty Zuñiga MD 10/18/24 14:58:
Back pain over the right rhomboids - far from midline. not consistent with discitis or osteomyelitis, no need for MRI in my opinion
Also percussed entire spine and no spinal tenderness with percussion
Original Note:
Consultation
-
Date/Time Consultation Requested: 10/18/24 8:30
Date/Time Consultation Performed: 10/18/24 14:19
Requesting Provider: Dr Sanabria
Performing Provider: Dr Zuñiga
Reason for Consultation: infected PICC
Chief Complaint / Past History
Chief Complaint
fever chills rigors
History of Present Illness
Mr Leavitt is a 59 year old male with history of Crohns disease on rinvoq (VICTOR HUGO-I), DM2 on TPN via PICC line who presented here 10/16 for a fever of 101, chills, rigors. No couh, congestion, rhinorrhea, headache, dysuria. Chronic abdominal pain
and diarrhea is unchanged from his baseline. Of note he is on chronic metronidazole as prophylaxis.
Since arrival here he has been afebrile, bp stable, wbc on arrival 12.8 today 5.2, hgb 8.4 today 6.4, pt initially 416 now 233, L shift initially 93% now 77% nearly resolved, unknown Cr baseline today 1.4, na 134, K 3.3, co2 initialy 14 today 20, t
bili 0.1, ast 17, alt 12, alk phos 45, crp 36, UA no pyuria, stool calprotectin in progress, covid ag negative, peripheral venous US: chronic nonocclusive DVT, CT a/p with IV and oral contrast: partial colectomy, prior partial small bowel
resections, mild thicking of recum - porctitis, prior cholecystectomy, IVC filter present, CXR: no infiltrates, PICC in place, one of two sets of blood cultures from the PICC wiht acinetobacter, qtc 426, currently on vancomycin and zosyn, ID is
consulted for assistance with management.
Past History
Additional Past Medical History:
Type 2 diabetes
Hypertension
DVT
Crohn's disease
Iron deficiency anemia
B12 deficiency
Additional Past Surgical History:
History of multiple abdominal resection
Allergy History:
No Known Allergies Allergy (Unverified 10/16/24 14:22)
Medications Reviewed: Yes
Social History
Tobacco: Former Smoker
Alcohol: None
Personal:
Family History
Family History: Not Pertinent
Review of Systems
Review of Systems
General: Fever and Chills
All systems: All other systems were reviewed and were negative
Vital Signs
Temp Pulse Resp BP Pulse Ox
97.7 F 79 18 107/60 100
10/18/24 13:19 10/18/24 13:19 10/18/24 13:19 10/18/24 13:19 10/18/24 13:19
Physical Exam
Physical Exam
Constitutional: No Acute Distress
Cardiovascular: Regular Rate and S1/S2; Negative Murmur or Rub
Pulmonary: Clear and Symmetric; Negative Wheezes, Rales or Rhonchi
Gastrointestinal: Soft, Non Tender, Non Distended and Normal Bowel Sounds
Skin: Warm and Dry; Negative Rash or Jaundice
Lines: Other (PICC site nontender, dressing clean, dry, intact, as PICC just removed did not remove dressing)
Lab / Diagnostic Study Results
10/18/24 05:39
10/18/24 05:39
Abs Immat Gran (auto) 0.1 10^3/uL (0-0.05) H 10/18/24 05:39
Absolute Neuts (auto) 4.0 10^3/uL (1.4-6.5) 10/18/24 05:39
Absolute Lymphs (auto) 0.3 10^3/uL (1.2-3.4) L 10/18/24 05:39
Absolute Monos (auto) 0.6 10^3/uL (0.1-0.6) 10/18/24 05:39
Absolute Basos (auto) 0.0 10^3/uL (0-0.2) 10/18/24 05:39
Immature Gran % 1.0 % (0-0.5) H 10/18/24 05:39
Neutrophils % 77.7 % (42.2-75.2) H 10/18/24 05:39
Lymphocytes % 6.6 % (20.5-51.1) L 10/18/24 05:39
Monocytes % 11.0 % (1.7-9.3) H 10/18/24 05:39
Eosinophils % 3.3 % (0-6) 10/18/24 05:39
Basophils % 0.4 % (0-2) 10/18/24 05:39
Lactic Acid 0.9 mmol/L (0.7-2.0) 10/16/24 18:55
C-Reactive Protein 35.90 mg/L (0.0-10.00) H 10/17/24 18:42
Ur Squamous Epith Cells 0-2 /LPF (Few) 10/16/24 14:42
Microbiology Results
Micro:
10/16/24 20:09 Blood Culture - Preliminary
Blood/Venous Acinetobacter Species
Gram Stain - Preliminary
10/18/24 12:27 Catheter Tip Culture - Pending
Picc
10/16/24 21:23 - Preliminary
Feces/Stool Culture in Progress
Stool Leukocytes - Final
10/17/24 23:43 Salmonella/Shigella Culture - Pending
Feces/Stool Campylobacter Culture - Pending
Shiga Toxin Test - Pending
10/16/24 20:09 Blood Culture - Preliminary
Blood/Venous No Growth in 24 hours- Final report to follow
10/16/24 18:55 Blood Culture - Preliminary
Blood/Venous No Growth in 24 hours- Final report to follow
10/16/24 21:23 - Final
Feces/Stool Negative for Norovirus GI and GII.
10/16/24 21:23 C. difficile GDH Antigen & Toxins - Final
Feces/Stool Negative for toxigenic C.difficile
10/16/24 18:55 Influenza Types A & B (HARSHAD) - Final
Nasal Swab Negative for Influenza A & B, NAAT
Negative results must be combined with clinical observations
and patient history.
Nucleic Acid Amplification test (NAAT)performed on the
[employer] platform.
Assessment / Plan
Probable PICC line Infection due to Acinetobacter
- chronic TPN use - about 10 years
Fever - resolved
Immunosuppression on rinvoq (VICTOR HUGO-I)
Crohns Disease
Chronic diarrhea
- PICC has been removed
- paired cultures done on arrival, from the line - Acinetobacter, peripheral culture no growth to date
- picc tip sent for culture - poor sensitivity for line infection, if negative does not rule out line infection
- continue zosyn, while awaiting sensitivities add ciprofloxacin 500 mg PO BID
- hold POTATO PANCAKE FRIER metronidazole while on zosyn, can restart on dc, follow up with prescribing MD
- recheck QTc in the AM
- repeat blood cultures x2 in the am
- would prefer to continue holding rinvoq if feasible, left message for GI via tiger text asking for their input
Care Review
Plan reviewed with: Physician (Dr Sanabria - cultures, pulling picc)
[2024-10-18] MEDS: KCL 270 MEQ IV (15:42)
--- NOTE | 2024-10-18 16:33 | W.PN.GI.CBS2 ---
Today's Communication / Plan
-
await cultures
transfusing blood
Assessment / Plan
-
59 y.o. male with history of Crohns colitis c/b enterocutaneous fistulas s/p SBR as well as partial colectomy currently on Rinvoq, DVT w/ IVC filter on eliquis, PICC line for electrolytes and nutrition, HTN, DM2 admitted with 1 day of fever noted to
have mild proctitis CT scan, also with evidence of anemia on labs, unknown baseline.
#Crohns Colitis s/p partial colectomy and multiple SBRs w/ resultant short-gut?-- follows closely at [facility], on Rinvoq. Reports last flare 5 years ago. Colonoscopy within the last year. Plans for repeat colonoscopy in Nov.
-Tmax since arrival 99.6--BCx pending, if negative, okay to resume Rinvoq
-possible bacteremia from PICC line?--> blood cultures taken from PICC line as well as peripherally, pending
-Started on Zosyn
-not consistent with crohns flare, per patient, believes his prior CT scans have demonstrated this inflammation in the rectum, so this could be a chronic finding for him
-Diarrhea at baseline for patient, check stool studies to rule out infectious etiologies, fecal calpro
-check CRP
-denies prior CMV infection--overall clinical picture not very concerning for Crohns flare, monitor over next 24 hours, hold off on endoscopic procedures for now
#Acute on Chronic Anemia
plan:
-hgb drop again, ct negative and no overt gi bleeding, if drops again after transfusion consider heme w/u and flex sig in light of 'proctitis' finding
- awaiting cultures, thus far stool studies negative, picc cultured today
- hold on rinvoq until cultures back, d/w pt that stopping rinvoq won't increase antibody risk
-gets iron and B12 infusions as outpatient
- need records from [facility]
Subjective
Subjective
Date of Service: October 18, 2024
Pt w/o overt bleeding, receiving blood
no vomiting or abdominal pain
Objective
Data Reviewed
Laboratory Data:
Laboratory Results
10/18/24 05:39
10/18/24 05:39
Laboratory Results
Phosphorus 2.2 mg/dl (2.5-4.5) L 10/18/24 05:39
Magnesium 1.8 mg/dl (1.6-2.3) 10/18/24 05:39
Total Bilirubin 0.1 mg/dl (0.2-1.3) L 10/18/24 05:39
AST 17 U/L (17-59) 10/18/24 05:39
ALT 12 U/L (0-50) 10/18/24 05:39
Alkaline Phosphatase 45 U/L (38-126) 10/18/24 05:39
Vital Signs and I&O:
Vital Signs
Temp Pulse Resp BP Pulse Ox
98.2 F 82 17 128/70 100
10/18/24 15:39 10/18/24 15:39 10/18/24 15:39 10/18/24 15:39 10/18/24 15:39
I&O
10/17/24 10/18/24 10/19/24
06:59 06:59 06:59
Intake Total 800 / 800 4440 / 4440 250 / 250
Output Total 600 / 600
Balance 800 / 800 3840 / 3840 250 / 250
Physical Exam
Physical Exam
GI: Soft, Non Distended and Other (bowel sounds present, abdominal scar, reducible hernia)
Neuro: Non Focal
[2024-10-18] MEDS: CIPRO PO ×2 (16:55→17:35)
[2024-10-18] MEDS: IMODIUM PO ×2 (16:55→17:35)
[2024-10-18] MEDS: DILAUDID 1 MG IV ×2 (17:27→22:29)
[2024-10-18 17:40] LABS: Glucose - Point of Care 172 mg/dl (70-99)
[2024-10-18] MEDS: OFIRMEV 100 IV (17:55)
--- NOTE | 2024-10-18 18:24 | PTCARENOTE ---
Pt called this RN to room for severe chills. Temperature taken, oral temperature of 98.2. instructed this RN that this is what brought him in and the last time it happened, the temp did not start until half an hour in. Temperature rechecked 15
mins later at 102.1. Pt expressing nausea, fuzziness in the head, dizziness and uneasy feeling in stomach. Pt also with c/o 9/10 abdominal pain. Pt expressing inability to take PO meds at this time. This RN reached out to MD, tylenol and dilaudid
both swapped to IV instead. IV tylenol and dilaudid both administered. Pts temperature rechecked 10 minutes after IV tylenol, temperature now 102.9. MD made aware, pt resting comfortably in bed at this time with at bedside.
--- NOTE | 2024-10-18 18:41 | PTCARENOTE ---
MD ordered IV tylenol for continued fever, order acknowledged, awaiting pharmacy for medication to be sent up. Oncoming RN made aware of medication.
[2024-10-18 20:54] LABS: Glucose - Point of Care 219 mg/dl (70-99)
[2024-10-18] MEDS: ELAVIL 25 MG PO (22:29)
[2024-10-18] MEDS: FLOMAX 0.4 MG PO (22:36)
[2024-10-19] MEDS: ZOSYN 50 IV ×4 (02:08→21:07)
[2024-10-19] MEDS: LR 1000 IV ×2 (03:20→17:45)
[2024-10-19] MEDS: CIPRO 500 MG PO ×2 (05:37→17:43)
[2024-10-19] MEDS: DILAUDID 1 MG IV ×4 (06:40→20:04)
[2024-10-19 07:10] VITALS: BP 105/68
[2024-10-19 07:11] LABS: Glucose - Point of Care 124 mg/dl (70-99)
[2024-10-19 07:16] LABS: % Basophils 0.2 % (0-2); % Eosinophils 2.2 % (0-6); % Immature Granulocytes 0.8 % (0-0.5); % Lymphocytes 5.3 % (20.5-51.1); % Monocytes 8.2 % (1.7-9.3); % Neutrophils 83.3 % (42.2-75.2); Absolute Eosinophils 0.2 10^3/uL (0-0.7); Absolute Immature Granulocytes 0.1 10^3/uL (0-0.05); Absolute Lymphocytes 0.5 10^3/uL (1.2-3.4); Absolute Monocytes 0.8 10^3/uL (0.1-0.6); Absolute Neutrophils 7.6 10^3/uL (1.4-6.5); Hematocrit 24.2 % (39.0-52.0); Hemoglobin 7.9 g/dL (13.0-18.0); Mean Corp Hgb Conc. 32.6 g/dL (33.0-37.0); Mean Corpuscular Hgb 27.7 pg (27.0-31.0); Mean Corpuscular Volume 84.9 fL (80.0-94.0); Mean Platelet Volume 10.2 fL (7.4-10.4); Nucleated Red Blood Cells % 0 % (-); Platelet Count 256 10^3/uL (130-400); Red Blood Cell Count 2.85 10^6/uL (4.70-6.10); White Blood Cell Count 9.1 10^3/uL (4.8-10.8)
[2024-10-19 07:35] LABS: ALT (SGPT) 14 U/L (0-50); AST (SGOT) 29 U/L (17-59); Albumin 2.9 g/dl (3.5-5.0); Alkaline Phosphatase 58 U/L (38-126); Blood Urea Nitrogen 11 mg/dl (9-20); Calcium 7.7 mg/dl (8.4-10.2); Carbon Dioxide 22 mmol/L (22-30); Chloride 109 mmol/L (98-107); Estimated Creatinine Clearance 51 ml/min; Glucose 116 mg/dl (70-99); Potassium 3.9 mmol/L (3.5-5.1); Sodium 136 mmol/L (135-145); Total Bilirubin 1.4 mg/dl (0.2-1.3); eGFR 46.44
--- NOTE | 2024-10-19 08:50 | W.PN.HOSP.TC ---
Today's Communication/Plan
-
pending final Bcx, if neg - PICC and ID for duration and recommendations on Abx
Assessment / Plan
Assessment / Plan
59yo M with PMHx of cholecystectomy, intestinal bacterial overgrowth, Crohns colitis s/p colectomy, DM, BPH, LE DVT on ELiquis and IVC filter, RUE PICC line with 4xweek IVF came after he developed 1 hour of chills at home with reported fever of 101.
XR negative for pneumonia, no dysuria reported, influenza and COVID-[address] abd showed colitis. Patient also developed dark-black stool on the day of admission, found anemia. s/p 1 unit PRBC on 10/18/24. Bcx from PICC grew Acinetobacter
A/P:
#Fever at home
#Infected PICC line
#Immunosuppressed patient
#chronic diarrhea
Zosyn/Cipro, follow QTc
Bcx NTD
PICC line Cx - GNB
ID consult - remove PICC await Bcx results
Hold Rinvoq
GI consult
C.DIff and stool WBC neg
#New back pain
with fevers - MRI would be appropriate, however patient thinks that its just due to poor sleep and declined offered study
#Anemia, acute on chronic blood loss
Most likely 2/2 colitis
Serial H&H, transfuse to keep Hgb >7
PPI
Hold Antiplatelets, anticoagulation, avoid NSAIDs
#Hx of DVT LE on Eliquis and IVCf
Hold Eliquis - IVC filter present, so decreasing chance for pulmonary embolism.
US LE to eval if persistent DVT
#BPH
#Mild urinary bladder wall thickening
watch for retention
#Hypokalemia
#CKD stage 3a
#HAGMA on admission
Improving on Bicarb drip
follow and replete electrolytes
Urine studies
#Liver cyst/hemangioma
5mm - no follow up advised
#6 mm nodular focus within the inferior right lower lobe
outpatient CT chest in 3-6 months
DVT ppx SCDs
Full code
I have spent at least 38min reviewing chart, test results, communication with consukltants and direct patient care
Anticipated Discharge: > 48 hours
Subjective/Interval History
-
Date of Service: October 19, 2024
Objective Data
-
Labs:
Laboratory Results
10/19/24
06:50
WBC 9.1
Hgb 7.9 L D
Hct 24.2 L
Plt Count 256
Sodium 136
Potassium 3.9
Chloride 109 H
Carbon Dioxide 22
BUN 11
Creatinine 1.7 H
Glucose 116 H
Calcium 7.7 L
Total Bilirubin 1.4 H D
AST 29
ALT 14
Alkaline Phosphatase 58
Vital Signs:
Vital Signs
Temp Pulse Resp BP Pulse Ox
97.8 F 88 17 105/68 100
10/19/24 07:10 10/19/24 07:10 10/19/24 07:10 10/19/24 07:10 10/19/24 07:10
I&O
10/18/24 10/19/24 10/20/24
06:59 06:59 06:59
Intake Total 4440 / 4440 4710 / 4710
Output Total 600 / 600 650 / 650
Balance 3840 / 3840 4060 / 4060
Review of Systems
-
History Source: Patient
All other systems: Reviewed and negative
Abdomen/GI: Reports Abdominal Pain and Diarrhea
Physical Exam
-
General: No Apparent Distress
HEENT: Normocephalic, Atraumatic and Moist Mucous Membranes
Respiratory: Clear to Auscultation
GI: Soft
Genito-urinary: No Costovertebral Tender
Musculoskeletal: No Clubbing, No Cyanosis and No Edema
Neuro: Awake, Alert, Oriented and AO x 3
Psych: Calm
[2024-10-19] MEDS: IMODIUM 4 MG PO ×3 (08:52→21:14)
[2024-10-19] MEDS: NOVOLOG FLEXPEN-LOW RESISTANCE SC ×3 (08:52→17:15)
[2024-10-19] MEDS: PROTONIX IV 40 MG IV ×2 (08:53→21:07)
[2024-10-19] MEDS: NSS (PRESERVATIVE FREE) 10 ML IV ×2 (08:53→21:06)
[2024-10-19] MEDS: LOMOTIL 1 TABLET PO (08:54)
[2024-10-19] MEDS: TRICOR 145 MG PO (08:54)
[2024-10-19] MEDS: TOPROL XL PO (08:54)
[2024-10-19] MEDS: BENTYL 10 MG PO (08:54)
[2024-10-19] MEDS: LR IV (08:55)
--- NOTE | 2024-10-19 10:55 | CM ---
CM following re: discharge planning.
Reviewed pt's chart met with pt. IMM reviewed, placed on chart, pt has a copy.
Pt stated he is active with [facility] for infusion therapy and he will resume [facility] at discharge.
Pt reports his spouse will transport at discharge.
D/C plan: home with resumptions of [facility] and family support. Spouse to transport at discharge.
CM will follow with discharge plan updates as hospitalization progresses
[2024-10-19 11:47] LABS: Direct Bilirubin 0.3 mg/dl (0.0-0.4)
[2024-10-19 12:58] LABS: Glucose - Point of Care 123 mg/dl (70-99)
--- NOTE | 2024-10-19 14:29 | W.PN.ID1 ---
Date of Service
Date of Service: October 19, 2024
Today's Communication
follow up sensitivities
follow up repeat cultures
Assessment / Plan
Probable PICC line Infection due to Acinetobacter
- chronic TPN/IVF use - about 10 years
Fever - resolved
Immunosuppression on rinvoq ([facility])
Crohns Disease
SIBO with chronic diarrhea
- PICC has been removed 10/18
- paired cultures done on arrival, from the line - Acinetobacter, peripheral culture no growth to date
- picc tip sent for culture - poor sensitivity for line infection, if negative does not rule out line infection
- plan 2 week course of treatment
- known to [facility]
- continue zosyn, while awaiting sensitivities add ciprofloxacin 500 mg PO BID
- hold [employer]AL[employer] metronidazole (for SIBO) while on zosyn
- QTc remains acceptable
- repeat blood cultures x2 in progress no growth to date
- would hold rinvoq while on treatment for line infection; appreciate GI input
Chief Complaint
-: Other (picc line infection)
Subjective / Review of Systems
afebrile
bp stable
no events overnight
Vital Signs / Physical Exam
Vital Signs
Vital Signs
Temp Pulse Resp BP Pulse Ox
97.8 F 88 17 105/68 100
10/19/24 07:10 10/19/24 08:54 10/19/24 07:10 10/19/24 08:54 10/19/24 11:34
Physical Exam
Constitutional: No Acute Distress and Chronically Ill
Cardiovascular: Regular Rate and S1/S2; Negative Murmur or Rub
Pulmonary: Clear and Symmetric; Negative Wheezes or Rales
Gastrointestinal: Soft, Non Tender, Non Distended and Normal Bowel Sounds
Skin: Warm and Dry; Negative Rash or Jaundice
Wound: Other (previous picc site no erythema warmth tenderness or cord)
Objective Data
Lab Data
Lab Results
10/19/24 06:50
10/19/24 06:50
Estimated Creat Clear 51 ml/min 10/19/24 06:50
Lactic Acid 0.9 mmol/L (0.7-2.0) 10/16/24 18:55
Total Bilirubin 1.4 mg/dl (0.2-1.3) H D 10/19/24 06:50
AST 29 U/L (17-59) 10/19/24 06:50
ALT 14 U/L (0-50) 10/19/24 06:50
Alkaline Phosphatase 58 U/L (38-126) 10/19/24 06:50
C-Reactive Protein 35.90 mg/L (0.0-10.00) H 10/17/24 18:42
Most recent labs reviewed.
Micro Results:
10/17/24 23:43 Salmonella/Shigella Culture - Preliminary
Feces/Stool Culture in Progress
Campylobacter Culture - Preliminary
Culture in Progress
Shiga Toxin Test - Pending
10/18/24 12:27 Catheter Tip Culture - Preliminary
Picc No Growth After 18-24 Hours
10/16/24 20:09 Blood Culture - Preliminary
Blood/Venous Acinetobacter Species
Gram Stain - Preliminary
10/16/24 21:23 - Final
Feces/Stool NO YERSINIA SPECIES ISOLATED
Stool Leukocytes - Final
10/19/24 11:10 Blood Culture - Pending
Blood/Venous
10/19/24 06:50 Blood Culture - Pending
Blood/Venous
10/16/24 20:09 Blood Culture - Preliminary
Blood/Venous No Growth in 48 hours- Final report to follow
10/16/24 18:55 Blood Culture - Preliminary
Blood/Venous No Growth in 48 hours- Final report to follow
10/16/24 21:23 - Final
Feces/Stool Negative for Norovirus GI and GII.
10/16/24 21:23 C. difficile GD Antigen & Toxins - Final
Feces/Stool Negative for toxigenic C.difficile
10/16/24 18:55 Influenza Types A & B (HARSHAD) - Final
Nasal Swab Negative for Influenza A & B, NAAT
Negative results must be combined with clinical observations
and patient history.
Nucleic Acid Amplification test (NAAT)performed on the
[email or web address] platform.
[2024-10-19 15:10] VITALS: BP 116/64
[2024-10-19 16:48] LABS: Glucose - Point of Care 158 mg/dl (70-99)
--- NOTE | 2024-10-19 17:40 | W.PN.GI.CBS2 ---
Addendum entered and electronically signed by Vincent Workman MD 10/19/24 17:55:
I saw and examined the patient.
The PA's note was reviewed and I agree with the note.
Comment:
Resume Rinvoq once second set of blood cx is -ve.
Original Note:
Today's Communication / Plan
-
as per plan
Assessment / Plan
-
59 y.o. male with history of Crohns colitis c/b enterocutaneous fistulas s/p SBR as well as partial colectomy currently on Rinvoq, DVT w/ IVC filter on eliquis, PICC line for electrolytes and nutrition, HTN, DM2 admitted with 1 day of fever noted to
have mild proctitis CT scan, also with evidence of anemia on labs, unknown baseline.
#Crohns Colitis s/p partial colectomy and multiple SBRs w/ resultant short-gut?-- follows closely at [facility], on Rinvoq. Reports last flare 5 years ago. Colonoscopy within the last year. Plans for repeat colonoscopy in Nov.
-Tmax since arrival 99.6--BCx pending, if negative, okay to resume Rinvoq
-possible bacteremia from PICC line?--> blood cultures taken from PICC line as well as peripherally, pending
-Started on Zosyn
-not consistent with crohns flare, per patient, believes his prior CT scans have demonstrated this inflammation in the rectum, so this could be a chronic finding for him
-Diarrhea at baseline for patient, check stool studies to rule out infectious etiologies, fecal calpro
-check CRP
-denies prior CMV infection--overall clinical picture not very concerning for Crohns flare, monitor over next 24 hours, hold off on endoscopic procedures for now
#Acute on Chronic Anemia
plan:
-Hgb stable, ct negative and no overt gi bleeding, if drops again after transfusion consider heme w/u and flex sig in light of 'proctitis' finding. Stools without any blood per patient.
- awaiting cultures, thus far stool studies negative, picc cultured.
- hold on rinvoq until cultures back, d/w pt that stopping rinvoq won't increase antibody risk
-gets iron and B12 infusions as outpatient
- need records from [facility]
Subjective
Subjective
Date of Service: October 19, 2024
Patient without any abdominal pain. Stool are his baseline loose. No signs of bleeding. Hgb stable. Tolerating diet. Awaiting repeat blood cultures to re-initiate Rinvoq.
Objective
Data Reviewed
Laboratory Data:
Laboratory Results
10/19/24 06:50
10/19/24 06:50
Laboratory Results
Phosphorus 2.2 mg/dl (2.5-4.5) L 10/18/24 05:39
Magnesium 1.8 mg/dl (1.6-2.3) 10/18/24 05:39
Total Bilirubin 1.4 mg/dl (0.2-1.3) H D 10/19/24 06:50
AST 29 U/L (17-59) 10/19/24 06:50
ALT 14 U/L (0-50) 10/19/24 06:50
Alkaline Phosphatase 58 U/L (38-126) 10/19/24 06:50
Vital Signs and I&O:
Vital Signs
Temp Pulse Resp BP Pulse Ox
98.3 F 79 17 116/64 100
10/19/24 15:10 10/19/24 15:10 10/19/24 15:10 10/19/24 15:10 10/19/24 15:10
I&O
10/18/24 10/19/24 10/20/24
06:59 06:59 06:59
Intake Total 4440 / 4440 4710 / 4710 2400 / 2400
Output Total 600 / 600 650 / 650
Balance 3840 / 3840 4060 / 4060 2400 / 2400
Physical Exam
Physical Exam
HEENT: Anicteric
Cardiology: Normal Sinus Rhythm
Pulmonary: Clear (anterior)
GI: Soft, Non Distended, Non Tender, Normal Bowel Sounds and Other (2 abdominal hernias, reducible)
Extremities: No Edema
Neuro: Non Focal
[2024-10-19] MEDS: FLUSH (NSS) 2 FLUSH IV ×2 (20:05→21:08)
[2024-10-19] MEDS: ELAVIL 25 MG PO (21:12)
[2024-10-19] MEDS: FLOMAX 0.4 MG PO (21:12)
[2024-10-19 21:14] LABS: Glucose - Point of Care 205 mg/dl (70-99)
[2024-10-19 22:36] LABS: Calprotectin, Fecal 553 ug/g (<=49)
[2024-10-19 23:05] VITALS: BP 124/74
[2024-10-20] VITALS (7 sets, daily range): BP systolic 122–131; BP diastolic 68–78
[2024-10-20] MEDS: ZOSYN 50 IV ×4 (01:45→20:29)
[2024-10-20] MEDS: DILAUDID 1 MG IV ×4 (01:45→18:37)
[2024-10-20] MEDS: FLUSH (NSS) 4 FLUSH IV (01:46)
[2024-10-20] MEDS: LR 1000 IV (04:58)
[2024-10-20] MEDS: CIPRO 500 MG PO ×2 (05:00→17:04)
[2024-10-20 07:21] LABS: Glucose - Point of Care 96 mg/dl (70-99)
[2024-10-20] MEDS: FLUSH (NSS) 2 FLUSH IV (07:25)
[2024-10-20 07:54] LABS: ALT (SGPT) 12 U/L (0-50); AST (SGOT) 18 U/L (17-59); Albumin 2.4 g/dl (3.5-5.0); Alkaline Phosphatase 41 U/L (38-126); Blood Urea Nitrogen 11 mg/dl (9-20); Calcium 7.9 mg/dl (8.4-10.2); Carbon Dioxide 24 mmol/L (22-30); Chloride 108 mmol/L (98-107); Estimated Creatinine Clearance 54 ml/min; Glucose 105 mg/dl (70-99); Potassium 3.6 mmol/L (3.5-5.1); Sodium 137 mmol/L (135-145); Total Bilirubin 0.5 mg/dl (0.2-1.3); Total Protein 5.2 g/dl (6.3-8.2); eGFR 49.94
[2024-10-20] MEDS: NOVOLOG FLEXPEN-LOW RESISTANCE SC (08:40)
[2024-10-20] MEDS: BENTYL 10 MG PO (08:41)
[2024-10-20] MEDS: IMODIUM 4 MG PO ×3 (08:41→21:03)
[2024-10-20] MEDS: TRICOR 145 MG PO (08:41)
[2024-10-20] MEDS: LOMOTIL 1 TABLET PO (08:41)
[2024-10-20] MEDS: TOPROL XL 50 MG PO (08:41)
[2024-10-20] MEDS: PROTONIX IV 40 MG IV ×2 (08:42→20:26)
[2024-10-20] MEDS: NSS (PRESERVATIVE FREE) 10 ML IV ×2 (08:42→20:26)
[2024-10-20 08:53] LABS: % Basophils 0.4 % (0-2); % Eosinophils 3.1 % (0-6); % Immature Granulocytes 0.7 % (0-0.5); % Monocytes 10.9 % (1.7-9.3); % Neutrophils 77.9 % (42.2-75.2); Absolute Eosinophils 0.2 10^3/uL (0-0.7); Absolute Lymphocytes 0.4 10^3/uL (1.2-3.4); Absolute Monocytes 0.6 10^3/uL (0.1-0.6); Absolute Neutrophils 4.2 10^3/uL (1.4-6.5); Hematocrit 20.7 % (39.0-52.0); Hemoglobin 6.6 g/dL (13.0-18.0); Mean Corp Hgb Conc. 31.9 g/dL (33.0-37.0); Mean Corpuscular Hgb 27.6 pg (27.0-31.0); Mean Corpuscular Volume 86.6 fL (80.0-94.0); Mean Platelet Volume 10.5 fL (7.4-10.4); Nucleated Red Blood Cells % 0 % (-); Platelet Count 188 10^3/uL (130-400); Red Blood Cell Count 2.39 10^6/uL (4.70-6.10); Red Cell Dist. Width 14.9 % (11.5-14.5); White Blood Cell Count 5.4 10^3/uL (4.8-10.8)
--- NOTE | 2024-10-20 11:39 | W.PN.HOSP.TC ---
Today's Communication/Plan
-
transfuse PRBC
Anemia w/u
ID for ABx and PICC plan recall GI
Assessment / Plan
Assessment / Plan
59yo M with PMHx of cholecystectomy, intestinal bacterial overgrowth, Crohns colitis s/p colectomy, DM, BPH, LE DVT on ELiquis and IVC filter, RUE PICC line with 4xweek IVF came after he developed 1 hour of chills at home with reported fever of 101.
XR negative for pneumonia, no dysuria reported, influenza and COVID-[address] abd showed colitis. Patient also developed dark-black stool on the day of admission, found anemia. s/p 1 unit PRBC on 10/18/24. Bcx from PICC grew Acinetobacter
pending final Cx, ID Abx plan and PICC line reinsertion
A/P:
#Fever at home
#Infected PICC line
#Immunosuppressed patient
#chronic diarrhea
Zosyn/Cipro, follow QTc
Bcx NTD
PICC line Cx - GNB
ID consult - remove PICC await Bcx results
Hold Rinvoq
GI consult
C.DIff and stool WBC neg
#New back pain
with fevers - MRI would be appropriate, however patient thinks that its just due to poor sleep and declined offered study
#Anemia, acute on chronic blood loss
Most likely 2/2 colitis
Serial H&H, transfuse to keep Hgb >7
PPI
Hold Antiplatelets, anticoagulation, avoid NSAIDs
#Hx of DVT LE on Eliquis and IVCf
Hold Eliquis - IVC filter present, so decreasing chance for pulmonary embolism.
US LE to eval if persistent DVT
#BPH
#Mild urinary bladder wall thickening
watch for retention
#Hypokalemia
#CKD stage 3a
#HAGMA on admission
Improving on Bicarb drip
follow and replete electrolytes
Urine studies
#Liver cyst/hemangioma
5mm - no follow up advised
#6 mm nodular focus within the inferior right lower lobe
outpatient CT chest in 3-6 months
DVT ppx SCDs
Full code
I have spent at least 58min reviewing chart, test results, communication with consukltants and direct patient care
Anticipated Discharge: > 48 hours
Subjective/Interval History
-
Date of Service: October 20, 2024
Objective Data
-
Labs:
Laboratory Results
10/20/24
06:47
WBC 5.4
Hgb 6.6 L*
Hct 20.7 L*
Plt Count 188 D
Sodium 137
Potassium 3.6
Chloride 108 H
Carbon Dioxide 24
BUN 11
Creatinine 1.6 H
Glucose 105 H
Calcium 7.9 L
Total Bilirubin 0.5
AST 18
ALT 12
Alkaline Phosphatase 41
Vital Signs:
Vital Signs
Temp Pulse Resp BP Pulse Ox
97.8 F 85 18 131/74 100
10/20/24 07:00 10/20/24 08:41 10/20/24 07:00 10/20/24 08:41 10/20/24 07:00
I&O
10/19/24 10/20/24 10/21/24
06:59 06:59 06:59
Intake Total 4710 / 4710 2700 / 2700 1500 / 1500
Output Total 650 / 650
Balance 4060 / 4060 2700 / 2700 1500 / 1500
Review of Systems
-
History Source: Patient
All other systems: Reviewed and negative
Physical Exam
-
General: No Apparent Distress
Neuro: Awake, Alert, Oriented and AO x 3
Psych: Calm
[2024-10-20 11:40] LABS: Glucose - Point of Care 187 mg/dl (70-99)
[2024-10-20 12:12] LABS: Iron 26 ug/dl (49-181); LDH 202 U/L (120-246)
[2024-10-20 12:22] LABS: Percent Saturation 9 % (20-50); Total Iron Binding Capacity 261 ug/dl (261-462)
[2024-10-20 12:25] LABS: Reticulocyte Count 4.2 % (0.4-2.8)
[2024-10-20 12:48] LABS: Ferritin 79.3 ng/ml (17.9-464.0)
[2024-10-20 13:19] LABS: Vitamin B12 519 pg/ml (239-931)
[2024-10-20] MEDS: NOVOLOG FLEXPEN-LOW RESISTANCE 1 UNITS SC (13:25)
[2024-10-20 13:37] LABS: Folate 15.3 ng/ml (2.76-20)
--- NOTE | 2024-10-20 14:29 | W.PN.GI.CBS2 ---
Today's Communication / Plan
-
Continue monitor H&H. Transfuse as needed
Follow-up with his GI at [facility] on discharge
Assessment / Plan
-
59 y.o. male with history of Crohns colitis c/b enterocutaneous fistulas s/p SBR as well as partial colectomy currently on Rinvoq, DVT w/ IVC filter on eliquis, PICC line for electrolytes and nutrition, HTN, DM2 admitted with 1 day of fever noted to
have mild proctitis CT scan, also with evidence of anemia on labs, unknown baseline.
#Crohns Colitis s/p partial colectomy and multiple SBRs w/ resultant short-gut?-- follows closely at [facility], on Rinvoq. Reports last flare 5 years ago. Colonoscopy within the last year. Plans for repeat colonoscopy in Nov.
-Tmax since arrival 99.6--BCx pending, if negative, okay to resume Rinvoq
-possible bacteremia from PICC line?--> blood cultures taken from PICC line as well as peripherally, pending
-Started on Zosyn
-not consistent with crohns flare, per patient, believes his prior CT scans have demonstrated this inflammation in the rectum, so this could be a chronic finding for him
-Diarrhea at baseline for patient, check stool studies to rule out infectious etiologies, fecal calpro
-check CRP
-denies prior CMV infection--overall clinical picture not very concerning for Crohn's flare, monitor over next 24 hours, hold off on endoscopic procedures for now
#Acute on Chronic Anemia
plan:
Patient denies any overt GI bleeding. Discussed about benefits and risk of endoscopic evaluation for acute on chronic anemia. Patient verbalized understanding and would like to hold off on endoscopy procedures here. He would like to have it done
with his GI at [facility] as outpatient. He claims he has been anemic and usually runs around 8-9. Also sees hematology at [facility] and get iron infusion. Will recommend follow-up with his GI at [facility] on discharge.
Okay to resume Rinvoq when repeat cultures are negative and okay with ID.
No further recommendation at this point. Will sign off. Please call us back if any questions
Total Time Spent with Patient (in minutes): 35
Subjective
Subjective
Date of Service: October 20, 2024
Denies any GI bleeding. Brown liquid stools.
Objective
Data Reviewed
Laboratory Data:
Laboratory Results
10/20/24 06:47
10/20/24 06:47
Laboratory Results
Phosphorus 2.2 mg/dl (2.5-4.5) L 10/18/24 05:39
Magnesium 1.8 mg/dl (1.6-2.3) 10/18/24 05:39
Total Bilirubin 0.5 mg/dl (0.2-1.3) 10/20/24 06:47
AST 18 U/L (17-59) 10/20/24 06:47
ALT 12 U/L (0-50) 10/20/24 06:47
Alkaline Phosphatase 41 U/L (38-126) 10/20/24 06:47
Vital Signs and I&O:
Vital Signs
Temp Pulse Resp BP Pulse Ox
98.4 F 83 18 128/75 100
10/20/24 13:38 10/20/24 13:38 10/20/24 13:38 10/20/24 13:38 10/20/24 07:00
I&O
10/19/24 10/20/24 10/21/24
06:59 06:59 06:59
Intake Total 4710 / 4710 2700 / 2700 1500 / 1500
Output Total 650 / 650
Balance 4060 / 4060 2700 / 2700 1500 / 1500
Physical Exam
Physical Exam
GI: Soft, Non Distended and Non Tender
[2024-10-20] MEDS: FERRLECIT 110 MG IV (15:54)
[2024-10-20 16:33] LABS: Glucose - Point of Care 212 mg/dl (70-99)
[2024-10-20] MEDS: NOVOLOG FLEXPEN-LOW RESISTANCE 2 UNITS SC (17:04)
[2024-10-20] MEDS: FLUSH (NSS) 3 FLUSH IV (20:29)
[2024-10-20] MEDS: FLOMAX 0.4 MG PO (21:01)
[2024-10-20] MEDS: ELAVIL 25 MG PO (21:01)
[2024-10-20 21:21] LABS: Glucose - Point of Care 164 mg/dl (70-99)
[2024-10-21] MEDS: DILAUDID 1 MG IV ×4 (00:05→14:27)
[2024-10-21] MEDS: FLUSH (NSS) 2 FLUSH IV ×3 (00:07→06:03)
[2024-10-21] MEDS: ZOSYN 50 IV ×2 (01:43→08:07)
[2024-10-21] MEDS: CIPRO 500 MG PO (06:00)
[2024-10-21 07:05] VITALS: BP 112/67
[2024-10-21 07:06] LABS: Glucose - Point of Care 129 mg/dl (70-99)
[2024-10-21] MEDS: NOVOLOG FLEXPEN-LOW RESISTANCE SC ×2 (07:13→16:51)
[2024-10-21 08:04] LABS: % Basophils 0.4 % (0-2); % Eosinophils 3.2 % (0-6); % Immature Granulocytes 1.1 % (0-0.5); % Lymphocytes 8.7 % (20.5-51.1); % Monocytes 7.6 % (1.7-9.3); Absolute Eosinophils 0.2 10^3/uL (0-0.7); Absolute Immature Granulocytes 0.1 10^3/uL (0-0.05); Absolute Lymphocytes 0.5 10^3/uL (1.2-3.4); Absolute Monocytes 0.4 10^3/uL (0.1-0.6); Absolute Neutrophils 4.3 10^3/uL (1.4-6.5); Hematocrit 22.4 % (39.0-52.0); Hemoglobin 7.3 g/dL (13.0-18.0); Mean Corp Hgb Conc. 32.6 g/dL (33.0-37.0); Mean Corpuscular Hgb 28.2 pg (27.0-31.0); Mean Corpuscular Volume 86.5 fL (80.0-94.0); Mean Platelet Volume 10.2 fL (7.4-10.4); Nucleated Red Blood Cells % 0 % (-); Platelet Count 188 10^3/uL (130-400); Red Blood Cell Count 2.59 10^6/uL (4.70-6.10); Red Cell Dist. Width 14.7 % (11.5-14.5); White Blood Cell Count 5.4 10^3/uL (4.8-10.8)
[2024-10-21] MEDS: IMODIUM 4 MG PO ×2 (08:07→16:56)
[2024-10-21] MEDS: LOMOTIL 1 TABLET PO (08:07)
[2024-10-21] MEDS: BENTYL 10 MG PO (08:07)
[2024-10-21] MEDS: TOPROL XL 50 MG PO (08:07)
[2024-10-21] MEDS: TRICOR 145 MG PO (08:07)
[2024-10-21] MEDS: PROTONIX IV 40 MG IV (08:08)
[2024-10-21] MEDS: NSS (PRESERVATIVE FREE) 10 ML IV (08:08)
[2024-10-21 08:35] LABS: Blood Urea Nitrogen 10 mg/dl (9-20); Calcium 7.9 mg/dl (8.4-10.2); Carbon Dioxide 23 mmol/L (22-30); Chloride 107 mmol/L (98-107); Estimated Creatinine Clearance 54 ml/min; Glucose 112 mg/dl (70-99); Magnesium 1.5 mg/dl (1.6-2.3); Phosphorus 2.4 mg/dl (2.5-4.5); Potassium 3.6 mmol/L (3.5-5.1); Sodium 136 mmol/L (135-145); eGFR 49.94
[2024-10-21] MEDS: SODIUM PHOSPHATE 255 MEQ IV (09:12)
[2024-10-21] MEDS: MAGNESIUM SULFATE 100 IV (09:13)
--- NOTE | 2024-10-21 11:07 | W.PN.ID1 ---
Date of Service
Date of Service: October 21, 2024
Today's Communication
Continue antibiotics. Narrow to Cipro alone. See below�
Assessment / Plan
Suspected PICC line Infection due to Acinetobacter lwoffii
- chronic TPN/IVF use - about 10 years
Fever - resolved
Immunosuppression on rinvoq ([facility]-I)
Crohns Disease
SIBO with chronic diarrhea
- PICC removed 10/18
- paired cultures done on arrival : BC from line - Acinetobacter; peripheral blood culture - no growth
- plan 2 week course of treatment
- known to [facility] infusion services
- Continue ciprofloxacin 500 mg PO BID through 10/27/24
- Can resume [employer] metronidazole (for SIBO)
- QTc remains acceptable
- repeat blood cultures x2 in progress no growth to date
- would hold rinvoq while on treatment for line infection; appreciate GI input
����������������������������������������������������������
Chief Complaint
-: Other (picc line infection)
Subjective / Review of Systems
Review of Systems: No Fever and No Chills
Vital Signs / Physical Exam
Vital Signs
Vital Signs
Temp Pulse Resp BP Pulse Ox
98.4 F 81 14 112/67 97
10/21/24 07:05 10/21/24 08:07 10/21/24 07:05 10/21/24 08:07 10/21/24 07:05
Physical Exam
Constitutional: No Acute Distress, Comfortable and Non-toxic
Eyes: Sclera Anicteric
Pulmonary: Non Labored
Extremities: Negative Cyanosis or Erythema
Skin: Warm and Dry; Negative Rash or Jaundice
Neurological: Awake and Alert
Psychological: Calm
Objective Data
Lab Data
Lab Results
10/21/24 07:46
10/21/24 07:46
Estimated Creat Clear 54 ml/min 10/21/24 07:46
Lactic Acid 0.9 mmol/L (0.7-2.0) 10/16/24 18:55
Total Bilirubin 0.5 mg/dl (0.2-1.3) 10/20/24 06:47
AST 18 U/L (17-59) 10/20/24 06:47
ALT 12 U/L (0-50) 10/20/24 06:47
Alkaline Phosphatase 41 U/L (38-126) 10/20/24 06:47
C-Reactive Protein 35.90 mg/L (0.0-10.00) H 10/17/24 18:42
Most recent labs reviewed.
Micro Results:
10/19/24 06:50 Blood Culture - Preliminary
Blood/Venous No Growth in 48 hours- Final report to follow
10/16/24 20:09 Blood Culture - Preliminary
Blood/Venous No Growth in 4 days- Final report to follow
10/16/24 18:55 Blood Culture - Preliminary
Blood/Venous No Growth in 4 days- Final report to follow
10/19/24 11:10 Blood Culture - Preliminary
Blood/Venous No Growth in 24 hours- Final report to follow
10/17/24 23:43 Salmonella/Shigella Culture - Final
Feces/Stool No Salmonella, Shigella, Aeromonas or Plesiomonas species
isolated.
Campylobacter Culture - Final
No Campylobacter species isolated.
Shiga Toxin Test - Pending
10/18/24 12:27 Catheter Tip Culture - Preliminary
Picc No Growth After 48 Hours
10/16/24 20:09 Blood Culture - Preliminary
Blood/Venous Acinetobacter lwoffii
Gram Stain - Preliminary
10/16/24 21:23 - Final
Feces/Stool NO YERSINIA SPECIES ISOLATED
Stool Leukocytes - Final
10/16/24 21:23 - Final
Feces/Stool Negative for Norovirus GI and GII.
10/16/24 21:23 C. difficile GDH Antigen & Toxins - Final
Feces/Stool Negative for toxigenic C.difficile
10/16/24 18:55 Influenza Types A & B (HARSHAD) - Final
Nasal Swab Negative for Influenza A & B, NAAT
Negative results must be combined with clinical observations
and patient history.
Nucleic Acid Amplification test (NAAT)performed on the
[employer] platform.
Blood Culture Preliminary 10/16/24
Positive for Acinetobacter species by [employer]
Nucleic Acid Methodology.
Acinetobacter lwoffii
Organism 1 Acinetobacter lwoffii
1. Acinetobacter lwoffii
M.I.C. RX
--------- ---
Ampicillin/Sulbactam <=4/2 S
Cefepime 16 I
Ceftazidime 8 S
Ceftriaxone 2 S
Gentamicin <=2 S
Ciprofloxacin (suppressed) <0.5
Meropenem <=1 S
Tobramycin <=2 S
Trimethoprim/Sulfamethoxazole <=2/38 S
Care Review
Plan reviewed with: Physician (Hospitalist)
--- NOTE | 2024-10-21 11:29 | W.PN.HOSP.TC ---
Today's Communication/Plan
-
replete phosphorus and magnesium
PICC line and then D/C
Assessment / Plan
Assessment / Plan
59yo M with PMHx of cholecystectomy, intestinal bacterial overgrowth, Crohns colitis s/p colectomy, DM, BPH, LE DVT on ELiquis and IVC filter, RUE PICC line with 4xweek IVF came after he developed 1 hour of chills at home with reported fever of 101.
XR negative for pneumonia, no dysuria reported, influenza and COVID-[address] abd showed colitis. Patient also developed dark-black stool on the day of admission, found anemia. s/p 1 unit PRBC on 10/18/24. Bcx from PICC grew Acinetobacter and
as per final Cx, ID recommended ciprofloxacin until 10/27/24 and PICC line reinsertion
A/P:
#Fever at home
#Infected PICC line
#Immunosuppressed patient
#chronic diarrhea
Zosyn/Cipro, follow QTc
Bcx NTD
PICC line Cx - GNB
ID consult - remove PICC await Bcx results
Hold Rinvoq
GI consult
C.DIff and stool WBC neg
#New back pain
with fevers - MRI would be appropriate, however patient thinks that its just due to poor sleep and declined offered study
#Anemia, acute on chronic blood loss
Most likely 2/2 colitis
Serial H&H, transfuse to keep Hgb >7
PPI
Hold Antiplatelets, anticoagulation, avoid NSAIDs
#Hx of DVT LE on Eliquis and IVCf
Hold Eliquis - IVC filter present, so decreasing chance for pulmonary embolism.
US LE to eval if persistent DVT
#BPH
#Mild urinary bladder wall thickening
watch for retention
#Hypokalemia
#CKD stage 3a
#HAGMA on admission
Improving on Bicarb drip
follow and replete electrolytes
Urine studies
#Liver cyst/hemangioma
5mm - no follow up advised
#6 mm nodular focus within the inferior right lower lobe
outpatient CT chest in 3-6 months
#Hypokalemia
#Hypomagnesemia
replete and follow
DVT ppx SCDs
Full code
I have spent at least 58min reviewing chart, test results, communication with consukltants and direct patient care
Anticipated Discharge: Within 24 hours
Subjective/Interval History
-
Date of Service: October 21, 2024
Objective Data
-
Labs:
Laboratory Results
10/21/24
07:46
WBC 5.4
Hgb 7.3 L
Hct 22.4 L
Plt Count 188
Sodium 136
Potassium 3.6
Chloride 107
Carbon Dioxide 23
BUN 10
Creatinine 1.6 H
Glucose 112 H
Calcium 7.9 L
Vital Signs:
Vital Signs
Temp Pulse Resp BP Pulse Ox
98.4 F 81 14 112/67 97
10/21/24 07:05 10/21/24 08:07 10/21/24 07:05 10/21/24 08:07 10/21/24 07:05
I&O
10/20/24 10/21/24 10/22/24
06:59 06:59 06:59
Intake Total 2700 / 2700 3070 / 3070
Balance 2700 / 2700 3070 / 3070
Review of Systems
-
History Source: Patient
All other systems: Reviewed and negative
Physical Exam
-
General: No Apparent Distress
Neuro: Awake, Alert and Oriented
Psych: Calm
[2024-10-21 11:55] LABS: Glucose - Point of Care 201 mg/dl (70-99)
[2024-10-21] MEDS: NOVOLOG FLEXPEN-LOW RESISTANCE 2 UNITS SC (12:51)
--- NOTE | 2024-10-21 13:17 | W.DCSUMMARY ---
Discharge Summary
Discharge Data
Date of Admission: 10/16/24
Date of Discharge: 10/21/24
-
Pending Results: No
Hospital Course
59yo M with PMHx of cholecystectomy, intestinal bacterial overgrowth, Crohns colitis s/p colectomy, DM, BPH, LE DVT on ELiquis and IVC filter, RUE PICC line with 4xweek IVF came after he developed 1 hour of chills at home with reported fever of 101.
XR negative for pneumonia, no dysuria reported, influenza and COVID-[address] abd showed colitis. Patient also developed dark-black stool on the day of admission, found anemia. s/p 1 unit PRBC on 10/18/24. As discussed with GI - no endoscopy
advised with absent overt bleeding, therefore Eliquis to be restarted. Bcx from PICC grew Acinetobacter and as per final Cx, ID recommended ciprofloxacin until 10/27/24 and PICC line reinsertion. Medically stable for d/c home to continue scheduled
follow up with his established specialists in [facility]
I have spent at least 58min reviewing chart, test results, communication with consukltants and direct patient care
Patient was managed for:
#Fever at home
#Infected PICC line
#Immunosuppressed patient
#chronic diarrhea
#New back pain
#Anemia, acute on chronic blood loss
#Hx of DVT LE on Eliquis and IVCf
#BPH
#Mild urinary bladder wall thickening
#Hypokalemia
#CKD stage 3a
#HAGMA on admission
#Liver cyst/hemangioma
#6 mm nodular focus within the inferior right lower lobe
#Hypokalemia
#Hypomagnesemia
Discharge Plan
-
Patient Disposition: Home (Routine Discharge)
Discharge Diagnosis/Procedures: PICC line infection
Diet: Low Cholesterol
Activity: As tolerated
Driving Restrictions: As prior to admission
Activity Restrictions/Additional Instructions:
repeat chest CT in 3-6 months with PCP for findings of 6 mm nodular focus within the inferior right lower lobe of the lung
Referrals:
NONE,* [Family Provider] -
Prescriptions:
New
ciprofloxacin HCl 500 mg Tablet
500 mg PO Q12H Qty: 13 0RF
pantoprazole 40 mg tablet,delayed release (DR/EC)
40 mg PO DAILY Qty: 30 0RF
Continued
fenofibrate micronized 160 mg Tablet
160 mg PO DAILY
metoprolol succinate 50 mg Tablet Extended Release 24 Hr
50 mg PO DAILY
loperamide 2 mg Tablet
4 mg PO TID
diphenoxylate-atropine 2.5-0.025 mg Tablet
1 tab PO DAILY
amitriptyline 25 mg Tablet
25 mg PO HS
tamsulosin 0.4 mg Capsule
0.4 mg PO HS
colesevelam [WelChol] 625 mg Tablet
625 mg PO BID
dicyclomine 10 mg Capsule
10 mg PO DAILY
hydromorphone 1 mg/mL Liquid
5 mg PO Q4H PRN (Reason: moderate pain)
fentanyl 12 mcg/hr Patch 72 Hour
1 patch TRANSDERMAL Q72H
Eliquis 5 mg Tablet
5 mg PO BID
Rinvoq 30 mg Tablet Extended Release 24 Hr
30 mg PO DAILY
insulin aspart U-100
metronidazole 500 mg Tablet
500 mg PO DAILY
Discharge Orders:
Discharge Patient (As Directed); Ordered 10/21/24
Ordered By: Jarred Sanabria
Discharge Date and Time
Print Language: HEBREW
[2024-10-21] MEDS: FERRLECIT 110 MG IV (14:27)
[2024-10-21 15:05] VITALS: BP 124/76
[2024-10-21 16:32] LABS: Glucose - Point of Care 113 mg/dl (70-99)
--- NOTE | 2024-10-22 08:31 | CM ---
Sent infusion information to [facility] including PICC info and chest x-ray.
== END 2024-10-21 17:34 | disposition home or self-care (01) | DRG 394 ==
LOC: 2 NORTH 20:30
PROVIDERS: Emergency Medicine; Nurse Practitioner Family; Registered Nurse; ADMITTING PHYSICIAN Internal Medicine; ATTENDING PHYSICIAN Internal Medicine; CONSULT PHYSICIAN Internal Medicine; CONSULT PHYSICIAN Student in an Organized Health Care Education/Training Program; EMERGENCY PHYSICIAN Student in an Organized Health Care Education/Training Program
PROC: 30233N1 Transfusion of Nonautologous Red Blood Cells into Peripheral Vein, Percutaneous Approach (ICD-10-PCS; 2024-10-18)
DX: K62.89 Other specified diseases of anus and rectum (principal); D62 Acute posthemorrhagic anemia; T80.219A Unspecified infection due to central venous catheter, initial encounter; K50.10 Crohn's disease of large intestine without complications; D84.821 Immunodeficiency due to drugs; E87.20 Acidosis, unspecified; E87.1 Hypo-osmolality and hyponatremia; Y84.8 Other medical procedures as the cause of abnormal reaction of the patient, or of later complication, without mention of misadventure at the time of the procedure; Z86.718 Personal history of other venous thrombosis and embolism; N40.0 Benign prostatic hyperplasia without lower urinary tract symptoms; E87.6 Hypokalemia; N18.31 Chronic kidney disease, stage 3a; E11.22 Type 2 diabetes mellitus with diabetic chronic kidney disease; I12.9 Hypertensive chronic kidney disease with stage 1 through stage 4 chronic kidney disease, or unspecified chronic kidney disease; D18.03 Hemangioma of intra-abdominal structures; E83.42 Hypomagnesemia; Z79.01 Long term (current) use of anticoagulants; Z79.4 Long term (current) use of insulin; E78.5 Hyperlipidemia, unspecified; D50.9 Iron deficiency anemia, unspecified; E83.39 Other disorders of phosphorus metabolism; I48.91 Unspecified atrial fibrillation; Z95.828 Presence of other vascular implants and grafts; Z90.49 Acquired absence of other specified parts of digestive tract; Z87.891 Personal history of nicotine dependence; Z79.899 Other long term (current) drug therapy; Z11.52 Encounter for screening for COVID-19; E53.8 Deficiency of other specified B group vitamins; K63.8219 Small intestinal bacterial overgrowth, unspecified
CPT/HCPCS: 71045; 71046; 74177; 80048; 80053; 81003; 81015; 82248; 82570; 82607; 82728; 82746; 82962; 83036; 83540; 83550; 83605; 83615; 83735; 83935; 83993; 84100; 84300; 85014; 85018; 85025; 85027; 85045; 86140; 86850; 86900; 86901; 86920; 87040; 87045; 87046; 87084; 87149; 87186; 87205; 87324; 87427; 87449; 87502; 87798; 87811; 89055; 93005; 93970; 96365; 99285; J2916; J2997; J7030; P9016; Q9967